=== PATIENT | male | born 1945 | race Hispanic/Latino ===

== ENCOUNTER 2016-10-09 23:42 | Inpatient (IN) | payer MEDICARE ==
[2016-10-10] MEDS ORDERED: Sodium Chloride 0.9% 1,000 ML IV STA (00:02)
--- NOTE | 2016-10-10 00:05 | ED PDOC ---
HPI: Trauma/Fall - HPI Time Seen by Provider: 10/09/16 23:52 Chief Complaint (Nursing): Hip Pain Chief Complaint (Provider): Hip pain s/p Fall History Per: Patient Additional Complaint(s): 71 yo male, multiple co-morbidities, presents to ED after a slip and fall down ~ 10 steps. Pt was feeling well, was walking up the stairs and slipped and fell , causing him to tumble down the stairs. Pt complaining of severer right hip pain, Right LE is shortened and externally rotated. Pt with noticeable contusion to occipital scalp. Also complaining of neck pain. No dizziness, nausea, vomiting, chest pain or SOB. Past Medical History Reviewed: Nursing Documentation, Vital Signs Vital Signs: Last Vital Signs Temp 97.3 F L 10/09/16 23:56 Pulse 88 10/09/16 23:56 Resp 16 10/09/16 23:56 BP 177/99 H 10/09/16 23:56 Pulse Ox 99 10/09/16 23:56 - Medical History PMH: CAD, Diabetes, HTN, Hypercholesterolemia Denies: HIV - Surgical History Surgical History: CABG - Family History Family History: States: Unknown Family Hx - Living Arrangements Living Arrangements: With Family - Social History Current smoker - smoking cessation education provided: No Alcohol: None Drugs: Denies - Home Medications Home Medications: Ambulatory Orders Medication Instructions Recorded Aspirin 325 mg PO DAILY #0 ect 07/19/14 Bimatoprost [Lumigan 5 ml] 1 drop EACHEYE HS #0 daysi 07/19/14 Brimonidine Tartrate [Alphagan 5 1 drop EACHEYE HS 10/10/16 ml] Carvedilol [Coreg] 12.5 mg PO BID 10/10/16 Furosemide [Lasix] 40 mg PO DAILY 10/10/16 Gabapentin [Neurontin] 300 mg PO DAILY 10/10/16 Glyburide/Metformin HCl 1.5 tab PO DAILY 10/10/16 [Glyburide-Metformin 5-500 mg] Glyburide/Metformin HCl 2 tab PO DAILY 10/10/16 [Glyburide-Metformin 5-500 mg] Insulin Degludec [Tresiba 16 units SQ HS 10/10/16 Flextouch U-100] Ramipril [Altace] 5 mg PO DAILY 10/10/16 Spironolactone [Aldactone] 50 mg PO DAILY 10/10/16 Zolpidem [Ambien] 5 mg PO HS PRN 10/10/16 - Allergies Allergies/Adverse Reactions: Allergies Allergy/AdvReac Type Severity Reaction Status Date / Time No Known Allergies Allergy Verified 07/17/14 07:00 Review of Systems ROS Statement: Except As Marked, All Systems Reviewed And Found Negative Musculoskeletal: Positive for: Back Pain, Leg Pain Neurological: Positive for: Headache Physical Exam - Reviewed Nursing Documentation Reviewed: Yes Vital Signs Reviewed: Yes - Physical Exam Appears: Positive for: Well, Non-toxic, No Acute Distress Head Exam: Positive for: NORMAL INSPECTION, NORMOCEPHALIC. Negative for: ATRAUMATIC (occipital scalp hematoma) Skin: Positive for: Normal Color, Warm, DRY Eye Exam: Positive for: EOMI, Normal appearance, PERRL ENT: Positive for: Normal ENT Inspection Neck: Positive for: Supple, Pain On Movement Of Neck Cardiovascular/Chest: Positive for: Regular Rate, Rhythm Respiratory: Positive for: CNT, Normal Breath Sounds Gastrointestinal/Abdominal: Positive for: Normal Exam, Bowel Sounds, Soft Back: Positive for: Normal Inspection, Vertebral Tenderness (LS Spine) Extremity: Positive for: Other (Right Leg is shortened and externally rotated. Dp pulses 2+) Neurologic/Psych: Positive for: Alert, Oriented - Laboratory Results Result Diagrams: 10/10/16 00:07 10/10/16 00:25 - ECG O2 Sat by Pulse Oximetry: 99 Medical Decision Making Medical Decision Making: IV access established and treatment initiated with 4 mg Morphine Diagnostics ordered CXR and LS Spine XR: NAD, as read by PA-C XR of hip revealed (+) comminuted fracture. CT scan of head and neck were negative CT of Hip.Pelvis: Bones/joints: Comminuted, displaced fracture proximal femur. Fracture involves proximal diaphysis with extension to lesser trochanter. No dislocation. Degenerative changes of lower lumbar spine. Soft tissues: Soft tissue swelling/hematoma about fracture. Bilateral inguinal hernias containing fat extending into scrotum. Vasculature: Atherosclerotic disease of visualized arteries. IMPRESSION: 1. Proximal femoral fracture. 2. Incidental/non-acute findings are described above. Pt and family made aware of results. Pt medicated with additional 4 mg Morphine for complaints of pain Pt's PMD is Dr. Acharya, FP resident contacted and presented to see and evaluate Pt at bedside. Arrangements made for admission Dr. Osorio, ortho on-call, Contacted and case discussed. Pt to likely go to OR on Monday, pending clearance. Disposition - Clinical Impression Clinical Impression: Hip fracture - Patient ED Disposition Is Patient to be Admitted: Yes - Disposition Disposition Time: 06:09 Condition: STABLE - POA Present On Arrival: Falls Or Trauma, Poor Glycemic Control
[2016-10-10 00:27] LABS: BASO # 0.1 K/uL (0.0-0.2); BASO % 0.9 % (0.0-2.0); EOS # 0.2 K/uL (0.0-0.7); EOS % 1.4 % (0.0-4.0); HEMATOCRIT 30.9 % (35.0-51.0); LYMPH # 2.6 K/uL (1.0-4.3); LYMPH % 16.4 % (20.0-40.0); MEAN CELL VOLUME 87.7 fl (80.0-94.0); MEAN CORPUSCULAR HEMOGLOBIN 29.3 pg (27.0-31.0); MEAN CORPUSCULAR HGB CONC 33.4 g/dL (33.0-37.0); MEAN PLATELET VOLUME 7.9 fl (7.2-11.7); MONO # 1.1 K/uL (0.0-0.8); MONO % 7.2 % (0.0-10.0); NEUT # 11.8 K/uL (1.8-7.0); NEUT % 74.1 % (50.0-75.0); RED CELL DISTRIBUTION WIDTH 13.2 % (11.5-14.5); WHITE BLOOD COUNT 15.9 K/uL (4.8-10.8)
[2016-10-10 00:32] LABS: BILIRUBIN,TOTAL 0.2 mg/dl (0.2-1.3); CALCIUM 9.6 mg/dL (8.4-10.2); POTASSIUM 4.8 MMOL/L (3.6-5.0)
[2016-10-10 00:44] LABS: TROPONIN I 0.019 ng/mL (0.00-0.120)
--- NOTE | 2016-10-10 00:47 | CT ---
EXAM: CT Head Without Intravenous Contrast CLINICAL HISTORY: 71 years old, male; Injury or trauma; Fall; Initial encounter; Blunt trauma (contusions or hematomas); Additional info: Fall, head injury TECHNIQUE: Axial computed tomography images of the head/brain without intravenous contrast. This CT exam was performed using one or more of the following dose reduction techniques: automated exposure control, adjustment of the mA and/or kV according to patient size, and/or use of iterative reconstruction technique. Coronal and sagittal reformatted images were created and reviewed. COMPARISON: No relevant prior studies available. FINDINGS: Brain: Tlvy-br-yldsukyd atrophy. No intracranial hemorrhage. No mass. Minimal decreased attenuation within periventricular white matter. No edema. Ventricles: No hydrocephalus. Bones/joints: No acute fracture. Soft tissues: LEFT parietal soft tissue swelling. Sinuses: No acute sinusitis. Mastoid air cells: No mastoid effusion. Orbits: Unremarkable as visualized. IMPRESSION: 1. No intracranial hemorrhage. 2. Nonspecific white matter changes. 3. Incidental/non-acute findings are described above.
--- NOTE | 2016-10-10 00:50 | CT ---
EXAM: CT Cervical Spine Without Intravenous Contrast CLINICAL HISTORY: 71 years old, male; Injury or trauma; Fall; Initial encounter; Blunt trauma; Additional info: Pain S/P fall TECHNIQUE: Axial computed tomography images of the cervical spine without intravenous contrast. This CT exam was performed using one or more of the following dose reduction techniques: automated exposure control, adjustment of the mA and/or kV according to patient size, and/or use of iterative reconstruction technique. Coronal and sagittal reformatted images were created and reviewed. COMPARISON: No relevant prior studies available. FINDINGS: Vertebrae: No acute fracture. Straightening of cervical spine. Degenerative anterolisthesis of mid cervical spine. Facet osteoarthrosis within cervical spine. Discs/spinal canal/neural foramina: Early to mild degenerative disc disease within upper to mid cervical spine. Moderate to severe degenerative disc disease within lower cervical spine. Disc herniations within mid to lower cervical spine, suboptimally evaluated. Mild indentation thecal sac/cord mid cervical spine. Moderate to severe indentation thecal sac/cord lower cervical spine. Multifocal neuroforaminal narrowing. Soft tissues: Unremarkable. Vasculature: Atherosclerotic disease of visualized arteries. Lung apices: Unremarkable as visualized. IMPRESSION: 1. No fracture. 2. Incidental/non-acute findings are described above.
--- NOTE | 2016-10-10 00:55 | CT ---
EXAM: CT Right Lower Extremity Without Intravenous Contrast, Hip CLINICAL HISTORY: 71 years old, male; Injury or trauma; Fall; Initial encounter; Blunt trauma; Hip; Right; Additional info: Fxr TECHNIQUE: Axial computed tomography images of the right hip without intravenous contrast. This CT exam was performed using one or more of the following dose reduction techniques: automated exposure control, adjustment of the mA and/or kV according to patient size, and/or use of iterative reconstruction technique. Coronal and sagittal reformatted images were created and reviewed. COMPARISON: No relevant prior studies available. FINDINGS: Bones/joints: Comminuted, displaced fracture proximal femur. Fracture involves proximal diaphysis with extension to lesser trochanter. No dislocation. Degenerative changes of lower lumbar spine. Soft tissues: Soft tissue swelling/hematoma about fracture. Bilateral inguinal hernias containing fat extending into scrotum. Vasculature: Atherosclerotic disease of visualized arteries. IMPRESSION: 1. Proximal femoral fracture. 2. Incidental/non-acute findings are described above.
[2016-10-10 01:51] LABS: PARTIAL THROMBOPLASTIN TIME 25.1 Seconds (25.6-37.1)
--- NOTE | 2016-10-10 02:32 | CP.PCM.HP ---
<JoserobbieFareed cuellar - Last Filed: 10/10/16 06:07> History of Present Illness - History of Present Illness History of Present Illness: 71 yo M w PMHx of HTN, CABG x5 '15, HLD, and DM2 is admitted for fractured R hip. His pain is located to his right hip, was 10/10 at rest until receiving morphine 4mg x2, which improved his baseline pain. Pt tripped while walking up a staircase at his home and fell backwards down a flight of stairs. 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 At bedside in ER, his states that he took all of his medications for 10/09. Otherwise, he also denies fevers/chills, nausea, vomiting , diarrhea, chest pain, palpitations, SOB, dyspnea, cough, or abdominal pain. PMD: Dr Oh Regional Safety Manager: Dr Gaona Ortho: Dr Sullivan Urology: Dr Pearson PMHx: HTN, CABG x5, DM2, HLD, CAD, Prostate Cancer, unsuccessful Left Eye Corneal Transplant PSHx: CABG, Left Eye Corneal Transplant NKDA Home Meds: ASA 325mg, Bimatoprost 5mL HS, Brimonidine 5mL HS, Coreg 12.5mg PO BID, Lasix 40mg PO Daily, Gabapentin 300mg PO Daily, Glucovance 2 tabs Daily, Insulin Degludec 16u SC HS, Ramipril 2.5mg Daily, Spironolactone 50mg Daily, Ambien 5mg HS SHx: Denies etoh or illicit drugs, but does smoke a few cigarettes per day ED Course: -CBC -CMP -PT/INR/PTT -ABO/RH Type -Right Hip XR -CXR -L Spine XR -EKG -Morphine 4mg IVP ONCE x2 -NS 1L @ 125 mL/hr Present on Admission - Present on Admission Any Indicators Present on Admission: No History of DVT/PE: No History of Uncontrolled Diabetes: No Urinary Catheter: No Decubitus Ulcer Present: No Review of Systems - Review of Systems Review of Systems: see HPI Past Patient History - Past Social History Smoking Status: Light Smoker < 10 Cigarettes Daily - CARDIAC Hx Hypercholesterolemia: Yes Hx Hypertension: Yes - HEENT Other/Comment: had left corneal transplant in - RENAL Hx Chronic Kidney Disease: No - ENDOCRINE/METABOLIC Hx Endocrine Disorders: Yes (DM II) Hx Diabetes Mellitus Type 2: Yes - HEMATOLOGICAL/ONCOLOGICAL Hx Human Immunodeficiency Virus (HIV): No - MUSCULOSKELETAL/RHEUMATOLOGICAL Hx Falls: No - GENITOURINARY/GYNECOLOGICAL Hx Prostate Cancer: Yes - PSYCHIATRIC Hx Substance Use: No - SURGICAL HISTORY Hx Coronary Artery Bypass Graft: Yes - ANESTHESIA Hx Anesthesia Reactions: No Meds Allergies/Adverse Reactions: Allergies Allergy/AdvReac Type Severity Reaction Status Date / Time No Known Allergies Allergy Verified 07/17/14 07:00 Physical Exam - Constitutional Appears: Non-toxic, Other (Uncomfortable, In Pain) - Head Exam Head Exam: NORMOCEPHALIC Additional comments: scalp abrasion - Eye Exam Eye Exam: EOMI Additional comments: Left eye exhibits mild white haziness (s/p corneal transplant) - ENT Exam ENT Exam: Mucous Membranes Moist - Neck Exam Neck exam: Positive for: Normal Inspection - Respiratory Exam Respiratory Exam: Clear to Auscultation Bilateral, NORMAL BREATHING PATTERN. absent: Wheezes, Respiratory Distress - Cardiovascular Exam Cardiovascular Exam: REGULAR RHYTHM - GI/Abdominal Exam GI & Abdominal Exam: Normal Bowel Sounds, Soft. absent: Tenderness - Extremities Exam Extremities exam: Positive for: pedal pulses present (2+ bilaterally). Negative for: pedal edema, tenderness Additional comments: sensation intact b/l lower extremities; Right leg is externally rotated and shortened - Neurological Exam Neurological exam: Alert, CN II-XII Intact, Oriented x3 - Psychiatric Exam Psychiatric exam: Normal Affect, Normal Mood - Skin Skin Exam: Dry, Intact, Normal Color, Warm Results - Vital Signs Recent Vital Signs: Last Vital Signs Temp 97.5 F L 10/10/16 01:53 Pulse 95 H 10/10/16 01:53 Resp 15 10/10/16 01:53 BP 165/80 H 10/10/16 01:53 Pulse Ox 97 10/10/16 01:53 - Labs Result Diagrams: 10/10/16 00:07 10/10/16 00:25 Assessment & Plan - Assessment and Plan (Free Text) Plan: 71 yo M w PMHx of HTN, CABG x5 '15, HLD, and DM2 is admitted for fractured R hip 1) Fracture of Right Hip -s/p traumatic fall down full staircase -CT Hip: Comminuted, displaced fracture proximal femur. Fracture involves proximal diaphysis with extension to lesser trochanter. No dislocation. Soft tissue swelling/hematoma about fracture. Atherosclerotic disease of visualized arteries. -CT Head: No intracranial hemorrhage. Nonspecific white matter changes. Left parietal soft tissue swelling. -CT C Spine: No fracture. Early to mild degenerative disc disease within upper to mid cervical spine. Moderate to severe degenerative disc disease within lower cervical spine. Disc herniations within mid to lower cervical spine. -Ortho Consult, Dr Sullivan onboard: Will take to OR on Monday -Consult Regional Safety Manager Dr Gaona for completeness sake of complete clearance -NS 1L @ 125mL/hr -Dilauded 1mg IVP Q6H -f/u Cardio Consult -f/u official readings of radiographs -f/u Pain Control; Consider pain management consult 2) DM2 -Pt states h/o controlled values; Will confirm this -Glucovance HELD until proper dosage can be obtained -Insulin Degludec 16u SC HS needs to be brought to hospital from home -Lispro Medium Sliding Scale ACHS -f/u FS SCHS 3) HTN w h/o CAD, CABG x5 -ASA 325mg PO Daily -Ramipril 5mg PO Daily -Spironolactone 50mg PO Daily -Coreg 12.5mg PO BID -Lasix 40mg PO Daily -f/u elevated BPs in respect to toleration of pain 4) Left Corneal Transplant -Brimonidine 0.2% 1 drop OU HS -Latanoprost 0.005% 1 drop OU HS 5) DVT Prophylaxis -SCDs <Jorge Oh - Last Filed: 10/13/16 06:45> Results - Vital Signs Recent Vital Signs: Last Vital Signs Temp 97.3 F L 10/13/16 00:32 Pulse 97 H 10/13/16 00:32 Resp 20 10/13/16 00:32 BP 110/68 10/13/16 00:32 Pulse Ox 98 10/13/16 00:32 - Labs Result Diagrams: 10/12/16 12:00 10/12/16 05:50 Labs: Laboratory Results - last 24 hr 10/12/16 10/12/16 10/12/16 05:50 05:50 10:54 WBC 12.9 H RBC 2.49 L Hgb 7.2 L D Hct 21.7 L MCV 87.4 MCH 29.0 MCHC 33.2 RDW 13.6 Plt Count 190 MPV 8.0 Neut % (Auto) 75.9 H Lymph % (Auto) 10.1 L [place] % (Auto) 12.2 H Eos % (Auto) 1.5 Baso % (Auto) 0.3 Neut # 9.8 H Lymph # 1.3 [place] # 1.6 H Eos # 0.2 Baso # 0.0 Sodium 131 L Potassium 5.3 H Chloride 99 Carbon Dioxide 24 Anion Gap 13 BUN 34 H Creatinine 1.6 H Est GFR ( Amer) 52 Est GFR (Non-Af Amer) 43 POC Glucose (mg/dL) 358 H Random Glucose 293 H Calcium 8.1 L Blood Type Antibody Screen Crossmatch BBK History Checked 10/12/16 10/12/16 10/12/16 12:00 12:30 15:38 WBC 12.0 H RBC 2.19 L Hgb 6.5 L* Hct 19.3 L MCV 87.8 MCH 29.5 MCHC 33.6 RDW 13.4 Plt Count 177 MPV Neut % (Auto) Lymph % (Auto) [place] % (Auto) Eos % (Auto) Baso % (Auto) Neut # Lymph # [place] # Eos # Baso # Sodium Potassium Chloride Carbon Dioxide Anion Gap BUN Creatinine Est GFR ( Amer) Est GFR (Non-Af Amer) POC Glucose (mg/dL) 387 H Random Glucose Calcium Blood Type Cancelled Antibody Screen Cancelled Crossmatch See Detail BBK History Checked Cancelled 10/12/16 10/13/16 21:43 06:24 WBC RBC Hgb Hct MCV MCH MCHC RDW Plt Count MPV Neut % (Auto) Lymph % (Auto) [place] % (Auto) Eos % (Auto) Baso % (Auto) Neut # Lymph # [place] # Eos # Baso # Sodium Potassium Chloride Carbon Dioxide Anion Gap BUN Creatinine Est GFR ( Amer) Est GFR (Non-Af Amer) POC Glucose (mg/dL) 347 H 387 H Random Glucose Calcium Blood Type Antibody Screen Crossmatch BBK History Checked Assessment & Plan (1) Prostate cancer Status: Chronic Priority: Low Attending/Attestation - Attestation I have personally seen and examined this patient.: Yes I have fully participated in the care of the patient.: Yes I have reviewed all pertinent clinical information: Yes
[2016-10-10] MEDS: Insulin Lispro (humaLOG) 100 Units/ml Inj SC SCH ×4 (06:58→22:26)
--- NOTE | 2016-10-10 08:38 | CP.PCM.CON ---
History of Present Illness - History of Present Illness History of Present Illness: Full Note Dictated Fractured Rt Femoral Neck Stable CAD (S/P CABG May, 2014) CHF (LV, Syst, Chr) DM(II, porly controlled) HTN/Dyslipidemia CKD (III) Chr HyperK+ COPD Exogenous Obesity Will get an Echocardiogram (Last on in Mar 2015 showed EF ~40-45%) Past Patient History - Past Medical History & Family History Past Medical History?: Yes - Past Social History Alcohol: None Drugs: Denies - CARDIAC Hx Hypercholesterolemia: Yes Hx Hypertension: Yes - PULMONARY Hx Respiratory Disorders: No - NEUROLOGICAL Hx Neurological Disorder: No - HEENT Other/Comment: had left corneal transplant in - RENAL Hx Chronic Kidney Disease: No - ENDOCRINE/METABOLIC Hx Endocrine Disorders: Yes (DM II) Hx Diabetes Mellitus Type 2: Yes - HEMATOLOGICAL/ONCOLOGICAL Hx Human Immunodeficiency Virus (HIV): No - INTEGUMENTARY Hx Dermatological Problems: No - MUSCULOSKELETAL/RHEUMATOLOGICAL Hx Falls: No - GENITOURINARY/GYNECOLOGICAL Hx Prostate Cancer: Yes - PSYCHIATRIC Hx Substance Use: No - SURGICAL HISTORY Hx Coronary Artery Bypass Graft: Yes - ANESTHESIA Hx Anesthesia Reactions: No Meds Allergies/Adverse Reactions: Allergies Allergy/AdvReac Type Severity Reaction Status Date / Time No Known Allergies Allergy Verified 07/17/14 07:00 - Medications Medications: Current Medications Aspirin (Ecotrin) 325 mg PO DAILY [facility] Brimonidine Tartrate (Alphagan 0.2% Opht) 1 drop OU HS [facility] Carvedilol (Coreg) 12.5 mg PO BID [facility] Furosemide (Lasix) 40 mg PO DAILY [facility] Gabapentin (Neurontin) 300 mg PO DAILY [facility] Heparin Sodium (Porcine) (Heparin) 5,000 units SC Q8 [facility] PRN Reason: Protocol Home Med (Insulin Degludec [Tresiba Flextouch U-100]) 16 units SQ HS [facility] Hydromorphone HCl (Dilaudid) 1 mg IVP Q6H PRN PRN Reason: Pain, severe (8-10) Last Admin: 10/10/16 03:28 Dose: 1 mg Insulin Human Lispro (Humalog) 0 units SC ACHS [facility] PRN Reason: Protocol Last Admin: 10/10/16 06:58 Dose: 6 units Latanoprost (Xalatan Opht) 1 drop OU HS [facility] Ramipril (Altace) 5 mg PO DAILY [facility] Spironolactone (Aldactone) 50 mg PO DAILY [facility] Zolpidem Tartrate (Ambien) 5 mg PO HS PRN PRN Reason: Insomnia Results - Vital Signs Recent Vital Signs: Last Vital Signs Temp 98 F 10/10/16 03:07 Pulse 102 H 10/10/16 03:07 Resp 20 10/10/16 03:07 BP 191/85 H 10/10/16 03:07 Pulse Ox 99 10/10/16 06:09 - Labs Result Diagrams: 10/10/16 00:07 10/10/16 00:25 Labs: Laboratory Results - last 24 hr 10/10/16 10/10/16 10/10/16 01:45 02:03 03:46 POC Glucose (mg/dL) 287 H 315 H Blood Type O POSITIVE BBK History Checked Patient has bt 10/10/16 05:37 POC Glucose (mg/dL) 335 H Blood Type BBK History Checked
[2016-10-10] MEDS ORDERED: GLYBURIDE PO SCH ×2 (09:00)
[2016-10-10] MEDS ORDERED: Aspirin 325 mg EC Tablets PO SCH (09:00)
[2016-10-10] MEDS ORDERED: METFORMIN HCL PO SCH ×2 (09:00)
--- NOTE | 2016-10-10 09:05 | CP.PCM.CON ---
History of Present Illness - History of Present Illness History of Present Illness: Orthopaedic Consult Note for Dr. Osorio 71 year old male patient with PMHx including DM, HTN, CABG x5 '15, HLD, was seen at bedside for fractured R hip. He states that last night he tripped while walking up a staircase at his home and fell backwards. He denies fevers/chills, nausea, vomiting, diarrhea, chest pain, palpitations, SOB, dyspnea, cough, or abdominal pain. He admits he is still having some pain to his right hip and cannot move it. Past Patient History - Past Medical History & Family History Past Medical History?: Yes - Past Social History Alcohol: None Drugs: Denies - CARDIAC Hx Hypercholesterolemia: Yes Hx Hypertension: Yes - PULMONARY Hx Respiratory Disorders: No - NEUROLOGICAL Hx Neurological Disorder: No - HEENT Other/Comment: had left corneal transplant in - RENAL Hx Chronic Kidney Disease: No - ENDOCRINE/METABOLIC Hx Endocrine Disorders: Yes (DM II) Hx Diabetes Mellitus Type 2: Yes - HEMATOLOGICAL/ONCOLOGICAL Hx Human Immunodeficiency Virus (HIV): No - INTEGUMENTARY Hx Dermatological Problems: No - MUSCULOSKELETAL/RHEUMATOLOGICAL Hx Falls: No - GENITOURINARY/GYNECOLOGICAL Hx Prostate Cancer: Yes - PSYCHIATRIC Hx Substance Use: No - SURGICAL HISTORY Hx Coronary Artery Bypass Graft: Yes - ANESTHESIA Hx Anesthesia Reactions: No Meds Allergies/Adverse Reactions: Allergies Allergy/AdvReac Type Severity Reaction Status Date / Time No Known Allergies Allergy Verified 07/17/14 07:00 - Medications Medications: Current Medications Aspirin (Ecotrin) 325 mg PO DAILY [facility] Last Admin: 10/10/16 08:29 Dose: 325 mg Brimonidine Tartrate (Alphagan 0.2% Opht) 1 drop OU HS [facility] Carvedilol (Coreg) 12.5 mg PO BID [facility] Last Admin: 10/10/16 08:27 Dose: 12.5 mg Furosemide (Lasix) 40 mg PO DAILY [facility] Last Admin: 10/10/16 08:29 Dose: 40 mg Gabapentin (Neurontin) 300 mg PO DAILY [facility] Last Admin: 10/10/16 08:28 Dose: 300 mg Heparin Sodium (Porcine) (Heparin) 5,000 units SC Q8 [facility] PRN Reason: Protocol Home Med (Insulin Degludec [Tresiba Flextouch U-100]) 16 units SQ HS [facility] Hydromorphone HCl (Dilaudid) 1 mg IVP Q6H PRN PRN Reason: Pain, severe (8-10) Last Admin: 10/10/16 08:40 Dose: 1 mg Insulin Human Lispro (Humalog) 0 units SC ACHS [facility] PRN Reason: Protocol Last Admin: 10/10/16 06:58 Dose: 6 units Latanoprost (Xalatan Opht) 1 drop OU HS [facility] Ramipril (Altace) 5 mg PO DAILY [facility] Last Admin: 10/10/16 08:29 Dose: 5 mg Spironolactone (Aldactone) 50 mg PO DAILY [facility] Last Admin: 10/10/16 08:28 Dose: 50 mg Zolpidem Tartrate (Ambien) 5 mg PO HS PRN PRN Reason: Insomnia Physical Exam - Constitutional Appears: Well, Non-toxic, No Acute Distress - Extremities Exam Additional comments: pedal pulses present 2/4 b/l sensation intact b/l lower extremities Right leg is externally rotated - Neurological Exam Neurological exam: Alert, Oriented x3 - Psychiatric Exam Psychiatric exam: Normal Affect, Normal Mood Results - Vital Signs Recent Vital Signs: Last Vital Signs Temp 97.8 F 10/10/16 08:43 Pulse 105 H 10/10/16 08:43 Resp 20 10/10/16 08:43 BP 179/94 H 10/10/16 08:43 Pulse Ox 96 10/10/16 08:43 - Labs Result Diagrams: 10/10/16 00:07 10/10/16 00:25 Labs: Laboratory Results - last 24 hr 10/10/16 10/10/16 10/10/16 01:45 02:03 03:46 POC Glucose (mg/dL) 287 H 315 H Blood Type O POSITIVE BBK History Checked Patient has bt 10/10/16 05:37 POC Glucose (mg/dL) 335 H Blood Type BBK History Checked Assessment & Plan - Assessment and Plan (Free Text) Assessment: 71 year old male with right femoral fracture Plan: patient examined and evaluated discussed in detail with attending, Dr. Osorio patient to OR tomorrow am for right femur ORIF with IM nail medical and cardic clearance to be obtained NPO after midnight
[2016-10-10] MEDS ORDERED: Sod Polystyrene Sulf 15 gm/60 ml Oral Susp PO ONE (09:58)
--- NOTE | 2016-10-10 11:29 | RAD ---
HISTORY: med screening COMPARISON: Chest x-ray performed 07/17/14 TECHNIQUE: Chest, one view. FINDINGS: Examination limited by habitus. LUNGS: No focal consolidation. Please note that chest x-ray has limited sensitivity for the detection of pulmonary masses. PLEURA: No significant pleural effusion identified. No definite pneumothorax . CARDIOVASCULAR: Median sternotomy wires with evidence of CABG. Cardiomegaly. Atherosclerotic calcification of the aortic knob. OSSEOUS STRUCTURES: Degenerative changes of the spine and shoulders. Evidence of right shoulder calcific tendinitis. VISUALIZED UPPER ABDOMEN: Mild elevation of the right hemidiaphragm. OTHER FINDINGS: None. IMPRESSION: No focal consolidation, significant pleural effusion, or definite pneumothorax identified. Cardiomegaly. Median sternotomy wires with evidence of CABG. Atherosclerotic calcifications of the aortic knob.
--- NOTE | 2016-10-10 11:43 | CON ---
DATE: 10/10/2016 He is hospitalized under Dr. Oh's care in room [address] [place] [address]. This 71-year-old man is known to me for over 4-5 years, a longstanding hypertensive and diabetic with coronary artery disease. He required coronary bypass graft surgery at the end of 05/2014 when sever e triple vessel coronary artery disease including left main disease was detected. He is a smoker who has a long history of diabetes, hypertension, dyslipidemia and chronic exogenous obesity. He also h as severe COPD and has had congestive cardiac failure requiring use of diuretics. Spironolactone had induced significant hyperkalemia, so the patient was taken off of spironolactone and ramipril and destiny medina was started on Kayexalate to manage his hyperkalemia. The patient was now hospitalized after a fall while climbing a flight of stairs, during which he has fractured his right femoral neck. PHYSICAL EXAMINATION: GENERAL: The patient appears comfortable, having received narcotics for analgesia. VITAL SIGNS: Has a heart rate of 80 beats per minute, regular, and a blood pressure of 174/80 mmHg. His jugular venous pressure was not elevated. EXTREMITIES: There was no edema over his lower extremities. The pedal pulses were extremely feeble. NECK: There were no carotid bruits. CHEST: The scar of sternotomy was evident. VASCULAR: His extremities were warm. His nailbeds were pink. No central or peripheral cyanosis was evident. His electrocardiogram showed sinus rhythm with nonspecific ST-T changes. LABORATORY DATA: Showed a hemoglobin and hematocrit of 10.3 grams and 30.9% respectively. His WBC c ount was 15,900, of which 74% were neutrophils. His platelet count was 263,000. His BUN and creatin ine were 44 and 1.5 mg % with a GFR of 46 mL per minute. His potassium was 4.8. His blood sugar thi s morning was 335 mg %. Liver profile was essentially normal. IMPRESSION: At this time is fractured right femoral neck in a patient with stable coronary artery di sease, congestive cardiac failure, which is left ventricular systolic and chronic with status post co ronary bypass graft surgery, chronic obstructive pulmonary disease, severe exogenous obesity, diabete s mellitus, which is type 2 and uncontrolled, with hypertension and dyslipidemia. The patient has cortez d hyperkalemia and is now taking Kayexalate on a regular basis to maintain a regular potassium level. The patient will undergo an echocardiogram to assess his left ventricular systolic function and if satisfactory, will then proceed with the planned surgery. Rush Gaona MD cc: 23 TT: 10/10/2016 11:42:35 Confirmation # [id number] Dictation # [id number]
--- NOTE | 2016-10-10 11:58 | RAD ---
PROCEDURE: HISTORY: fxr COMPARISON: Not available TECHNIQUE: AP pelvis and two views right hip. FINDINGS: There is an oblique comminuted intertrochanteric fracture of the right hip. There is no dislocation. There is displacement of the fracture fragments. There is no significant angulation identified. IMPRESSION: Comminuted, displaced, oblique intertrochanteric fracture of the right hip.
--- NOTE | 2016-10-10 13:46 | CP.PCM.PN ---
<Sabina Reddy - Last Filed: 10/10/16 15:52> Subjective - Date & Time of Evaluation Date of Evaluation: 10/10/16 Time of Evaluation: 07:15 - Subjective Subjective: Patient seen and examined at bedside, laying in bed, no acute events overnight. Denies SOB, headache, dizziness or chest pain. Reports pain of right lower extremity is 10/10, controlled with medication. Patient was seen by orthopedic team and cardiology, he is aware he will be NPO after midnight tonight for surgery tomorrow pending results of his echocardiogram and cardiology clearance. at bedside. Patient reports normal urine output, has no questions or concerns at this time. Objective - Vital Signs/Intake and Output Vital Signs (last 24 hours): Temp Pulse Resp BP Pulse Ox 97.8 F 105 H 20 179/74 H 96 10/10/16 08:43 10/10/16 12:44 10/10/16 08:43 10/10/16 12:44 10/10/16 08:43 - Medications Medications: Current Medications Amlodipine Besylate (Norvasc) 10 mg PO DAILY [facility] Last Admin: 10/10/16 12:44 Dose: 10 mg Aspirin (Ecotrin) 325 mg PO DAILY [facility] Last Admin: 10/10/16 08:29 Dose: 325 mg Brimonidine Tartrate (Alphagan 0.2% Opht) 1 drop OU HS [facility] Carvedilol (Coreg) 12.5 mg PO BID [facility] Last Admin: 10/10/16 08:27 Dose: 12.5 mg Furosemide (Lasix) 40 mg PO DAILY [facility] Last Admin: 10/10/16 08:29 Dose: 40 mg Gabapentin (Neurontin) 300 mg PO DAILY [facility] Last Admin: 10/10/16 08:28 Dose: 300 mg Heparin Sodium (Porcine) (Heparin) 5,000 units SC Q8 [facility] PRN Reason: Protocol Last Admin: 10/10/16 12:45 Dose: 5,000 units Home Med (Insulin Degludec [Tresiba Flextouch U-100]) 16 units SQ HS [facility] Hydromorphone HCl (Dilaudid) 1 mg IVP Q4 PRN PRN Reason: Pain, severe (8-10) Last Admin: 10/10/16 13:27 Dose: 1 mg Insulin Human Lispro (Humalog) 0 units SC ACHS [facility] PRN Reason: Protocol Last Admin: 10/10/16 12:46 Dose: 6 units Latanoprost (Xalatan Opht) 1 drop OU HS EDIS Ramipril (Altace) 5 mg PO DAILY [facility] Last Admin: 10/10/16 12:44 Dose: 5 mg Zolpidem Tartrate (Ambien) 5 mg PO HS PRN PRN Reason: Insomnia - Labs Labs: PT 9.9 Seconds (9.8-13.1) 10/10/16 00:25 INR 0.9 (0.9-1.2) 10/10/16 00:25 APTT 25.1 Seconds (25.6-37.1) L 10/10/16 00:25 - Constitutional Appears: Non-toxic, No Acute Distress - Head Exam Additional comments: 2cm nontender subcutaneous swelling of left parietal area - Eye Exam Eye Exam: EOMI, PERRL - ENT Exam ENT Exam: Mucous Membranes Moist - Neck Exam Neck Exam: Full ROM. absent: Lymphadenopathy - Respiratory Exam Respiratory Exam: NORMAL BREATHING PATTERN - Cardiovascular Exam Cardiovascular Exam: REGULAR RHYTHM, +S1, +S2 - GI/Abdominal Exam GI & Abdominal Exam: Soft (obese), Normal Bowel Sounds. absent: Tenderness - Extremities Exam Extremities Exam: Full ROM (of bilateral upper extremities and left lower extremity; right lower extremity externally rotated-normal pedal pulses, capillary refill and pt can wiggle toes) - Neurological Exam Neurological Exam: Alert, Awake - Psychiatric Exam Psychiatric exam: Normal Affect, Normal Mood - Skin Skin Exam: Dry, Intact, Warm Assessment and Plan - Assessment and Plan (Free Text) Assessment: 71 yr old M admitted for severe right hip pain and decreased ROM s/p fall down 10 steps. Patient found to have intertrochanteric fracture of the right hip. 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 Patient is being medically optimized for surgery on monday pending cardiology clearance, NPO after midnight tonight. 1. Fracture of Right Hip -s/p traumatic fall down full staircase -CT Hip: Comminuted, displaced fracture proximal femur. Fracture involves proximal diaphysis with extension to lesser trochanter. No dislocation. Soft tissue swelling/hematoma about fracture. Atherosclerotic disease of visualized arteries. -CT Head: No intracranial hemorrhage. Nonspecific white matter changes. Left parietal soft tissue swelling. -CT C Spine: No fracture. Early to mild degenerative disc disease within upper to mid cervical spine. Moderate to severe degenerative disc disease within lower cervical spine. Disc herniations within mid to lower cervical spine. -Ortho Consult, Dr Sullivan onboard: Will take to OR on Monday pending cardiology and medical optimization -Cardiology consult appreciated Dr. Gaona, will follow recommendations -Pain management: Dilauded 1mg IVP Q4H -NPO after midnight tonight 2. DM2 -uncontrolled -Insulin Lispro SC ACHS -Home meds held for now (Glucovance and Insulin Degludec 16u SC HS, will confirm doses with pharmacy) -will consider resumimg home meds after surgery tomorrow -f/u FS SCHS 3) HTN w h/o CAD, CABG x5 -ASA 325mg PO Daily-held for surgery tomorrow -Ramipril 5mg PO Daily -Spironolactone 50mg PO Daily -Coreg 12.5mg PO BID -Lasix 40mg PO Daily -f/u elevated BPs in respect to toleration of pain 4) Left Corneal Transplant -Brimonidine 0.2% 1 drop OU HS -Latanoprost 0.005% 1 drop OU HS 5) DVT Prophylaxis -SCDs only for now, heparin 5,000 units SC Q8 held for surgery tomorrow <Dipak Samuel - Last Filed: 10/11/16 07:05> Objective - Vital Signs/Intake and Output Vital Signs (last 24 hours): Temp Pulse Resp BP Pulse Ox 97.9 F 83 20 134/78 96 10/11/16 00:29 10/11/16 00:29 10/11/16 00:29 10/11/16 00:29 10/11/16 00:29 - Medications Medications: Current Medications Amlodipine Besylate (Norvasc) 10 mg PO DAILY [facility] Last Admin: 10/10/16 12:44 Dose: 10 mg Brimonidine Tartrate (Alphagan 0.2% Opht) 1 drop OU HS [facility] Last Admin: 10/10/16 22:28 Dose: 1 drop Carvedilol (Coreg) 12.5 mg PO BID [facility] Last Admin: 10/10/16 17:00 Dose: 12.5 mg Dextrose (Dextrose 50% Inj) 0 ml IV STAT PRN; Protocol PRN Reason: Hyglycemia Protocol Dextrose (Glutose 15) 0 gm PO ONCE PRN; Protocol PRN Reason: Hypoglycemia Protocol Furosemide (Lasix) 40 mg PO DAILY [facility] Last Admin: 10/10/16 08:29 Dose: 40 mg Gabapentin (Neurontin) 300 mg PO DAILY [facility] Last Admin: 10/10/16 08:28 Dose: 300 mg Glucagon (Glucagen Diagnostic Kit) 0 mg IM STAT PRN; Protocol PRN Reason: Hypoglycemia Protocol Home Med (Insulin Degludec [Tresiba Flextouch U-100]) 16 units SQ HS [facility] Hydromorphone HCl (Dilaudid) 1 mg IVP Q4 PRN PRN Reason: Pain, severe (8-10) Last Admin: 10/11/16 06:49 Dose: 1 mg Sodium Chloride (Sodium Chloride 0.9%) 1,000 mls @ 100 mls/hr IV .Q10H [facility] Stop: 10/11/16 20:27 Last Admin: 10/11/16 00:16 Dose: 100 mls/hr Insulin Human Lispro (Humalog) 0 units SC ACHS [facility] PRN Reason: Protocol Last Admin: 10/10/16 22:26 Dose: Not Given Latanoprost (Xalatan Opht) 1 drop OU HS [facility] Last Admin: 10/10/16 22:25 Dose: 1 drop Ondansetron HCl (Zofran Inj) 4 mg IVP Q6 PRN PRN Reason: Nausea/Vomiting Ramipril (Altace) 5 mg PO DAILY [facility] Last Admin: 10/10/16 12:44 Dose: 5 mg Zolpidem Tartrate (Ambien) 5 mg PO HS PRN PRN Reason: Insomnia - Labs Labs: PT 9.9 Seconds (9.8-13.1) 10/10/16 00:25 INR 0.9 (0.9-1.2) 10/10/16 00:25 APTT 25.1 Seconds (25.6-37.1) L 10/10/16 00:25 Attending/Attestation - Attestation I have personally seen and examined this patient.: Yes I have fully participated in the care of the patient.: Yes I have reviewed all pertinent clinical information, including history, physical exam and plan: Yes
--- NOTE | 2016-10-10 16:00 | RAD ---
PROCEDURE: Radiographs of the Lumbar Spine. HISTORY: back pain s/p fall COMPARISON: None available. FINDINGS: BONES: Alignment appears satisfactory. No listhesis. No acute displaced fracture identified. Multilevel degenerative changes including prominent osteophyte formation. Degenerative changes of the pelvis with joint space narrowing of both hips partially imaged. DISC SPACES: Intervertebral disc space narrowing most prominent at L5-S1 OTHER FINDINGS: Dense atherosclerotic calcifications of the aorta. Ovoid hyperdensity projects over the abdominal aorta at the level of L4, presumably external to the patient. Correlate clinically. IMPRESSION: Multilevel degenerative changes as above.
--- NOTE | 2016-10-10 19:09 | CARD ---
APPROVED REPORT EXAM: Two-dimensional and M-mode echocardiogram with Doppler and color Doppler. Other Information Quality : AverageRhythm : NSR INDICATION Congestive Heart Failure Surgery/Intervention CABD DIMENSIONS IVSd1.09 (0.7-1.1cm)LVDd4.54 (3.9-5.9cm) LVOT Diameter2.18 (1.8-2.4cm)PWd0.78 (0.7-1.1cm) IVSs0.98 (0.8-1.2cm)LVDs4.38 (2.5-4.0cm) FS (%) 3.7 %PWs1.29 (0.8-1.2cm) M-Mode DIMENSIONS Left Atrium (MM)3.98 (2.5-4.0cm)IVSd1.12 (0.7-1.1cm) Aortic Root3.32 (2.2-3.7cm)LVDd5.06 (4.0-5.6cm) Aortic Cusp Exc.1.78 (1.5-2.0cm)PWd1.36 (0.7-1.1cm) IVSs1.54 cmFS (%) 35 % LVDs3.28 (2.0-3.8cm)PWs1.57 cm Mitral Valve E/A ratio0.0 TDI E/Lateral E'0.0E/Medial E'0.0 Pulmonary Valve PV Peak Yylzybfp43.8cm/s LEFT VENTRICLE The left ventricle is normal size. There is normal left ventricular wall thickness. The left ventricular function is normal. The left ventricular ejection fraction is 55-60% There is normal LV segmental wall motion. Transmitral Doppler flow pattern is Grade IV-fixed restrictive diastolic dysfunction. No left ventricle thrombus noted on this study. There is no ventricular septal defect visualized. There is no left ventricular aneurysm. There is no mass noted in the left ventricle. RIGHT VENTRICLE The right ventricle is normal size. There is normal right ventricular wall thickness. The right ventricular systolic function is normal. ATRIA The left atrium size is normal. The right atrium size is normal. The interatrial septum is intact with no evidence for an atrial septal defect. AORTIC VALVE The aortic valve is moderately sclerotic. No aortic regurgitation is present. There is no aortic valvular stenosis. There is no aortic valvular vegetation. MITRAL VALVE The mitral valve is normal in structure and function. There is no evidence of mitral valve prolapse. There is no mitral valve stenosis. There is no mitral valve regurgitation noted. TRICUSPID VALVE The tricuspid valve is normal in structure and function. There is no tricuspid valve regurgitation noted. There is no tricuspid valve prolapse or vegetation. There is no tricuspid valve stenosis. PULMONIC VALVE The pulmonary valve is normal in structure and function. There is no pulmonic valvular regurgitation. There is no pulmonic valvular stenosis. GREAT VESSELS The aortic root is normal in size. The ascending aorta is normal in size. The IVC is normal in size and collapses >50% with inspiration. PERICARDIAL EFFUSION The pericardium appears normal. There is no pleural effusion. <Conclusion> Normal LV systolic function Restrictive Diastolic Fiilling Aortic Valve Sclerosis
--- NOTE | 2016-10-10 19:21 | CARD ---
APPROVED REPORT EKG Measurement Heart [id number] HI [id number] <Conclusion> Normal sinus rhythm Possible Left atrial enlargement ST & T wave abnormality, consider inferolateral ischemia Abnormal ECG
[2016-10-10] MEDS ORDERED: Glucagon Recombinant 1 mg Inj IM PRN (20:13)
[2016-10-10] MEDS ORDERED: Dextrose 50% SYRINGE Inj (50 ml) IV PRN (20:13)
[2016-10-10] MEDS ORDERED: INSULIN DEGLUDEC 16 UNIT SQ SCH (22:00)
[2016-10-10] MEDS ORDERED: BIMATOPROST EACHEYE SCH (22:00)
[2016-10-10] MEDS ORDERED: BRIMONIDINE TARTRATE EACHEYE SCH (22:00)
[2016-10-10] MEDS: Latanoprost 0.005% Opht SOUTION OU SCH (22:25)
[2016-10-10] MEDS: Brimonidine 0.2% 50 DROP/5 ML BOTTLE OU SCH (22:28)
[2016-10-11] MEDS: Sodium Chloride 0.9% 1,000 ML IV SCH ×3 (00:16→20:00)
[2016-10-11] MEDS ORDERED: Propofol 10 mg/ml Inj (20 ML) ONE (07:13)
[2016-10-11] MEDS ORDERED: Rocuronium 10 mg/ml (5 ml) ONE (07:15)
[2016-10-11] MEDS ORDERED: Midazolam 2 MG/2 ML VIAL ONE (07:15)
[2016-10-11] MEDS ORDERED: ePHEDrine 50 mg/ml Inj ONE (07:15)
[2016-10-11] MEDS ORDERED: Succinylcholine 200 mg/10 ml Inj IV ONE (07:15)
--- NOTE | 2016-10-11 07:47 | CP.PCM.PN ---
Subjective - Date & Time of Evaluation Date of Evaluation: 10/11/16 Time of Evaluation: 07:35 - Subjective Subjective: Reviewed Pt's echo images. Pt stable to proceed with the planned Sx. Objective - Vital Signs/Intake and Output Vital Signs (last 24 hours): Temp Pulse Resp BP Pulse Ox 97.9 F 83 20 134/78 96 10/11/16 00:29 10/11/16 00:29 10/11/16 00:29 10/11/16 00:29 10/11/16 00:29 - Medications Medications: Current Medications Amlodipine Besylate (Norvasc) 10 mg PO DAILY [facility] Last Admin: 10/10/16 12:44 Dose: 10 mg Brimonidine Tartrate (Alphagan 0.2% Opht) 1 drop OU HS [facility] Last Admin: 10/10/16 22:28 Dose: 1 drop Carvedilol (Coreg) 12.5 mg PO BID [facility] Last Admin: 10/10/16 17:00 Dose: 12.5 mg Dextrose (Dextrose 50% Inj) 0 ml IV STAT PRN; Protocol PRN Reason: Hyglycemia Protocol Dextrose (Glutose 15) 0 gm PO ONCE PRN; Protocol PRN Reason: Hypoglycemia Protocol Furosemide (Lasix) 40 mg PO DAILY [facility] Last Admin: 10/10/16 08:29 Dose: 40 mg Gabapentin (Neurontin) 300 mg PO DAILY [facility] Last Admin: 10/10/16 08:28 Dose: 300 mg Glucagon (Glucagen Diagnostic Kit) 0 mg IM STAT PRN; Protocol PRN Reason: Hypoglycemia Protocol Home Med (Insulin Degludec [Tresiba Flextouch U-100]) 16 units SQ HS [facility] Hydromorphone HCl (Dilaudid) 1 mg IVP Q4 PRN PRN Reason: Pain, severe (8-10) Last Admin: 10/11/16 06:49 Dose: 1 mg Sodium Chloride (Sodium Chloride 0.9%) 1,000 mls @ 100 mls/hr IV .Q10H [facility] Stop: 10/11/16 20:27 Last Admin: 10/11/16 00:16 Dose: 100 mls/hr Insulin Human Lispro (Humalog) 0 units SC ACHS [facility] PRN Reason: Protocol Last Admin: 10/10/16 22:26 Dose: Not Given Latanoprost (Xalatan Opht) 1 drop OU HS [facility] Last Admin: 10/10/16 22:25 Dose: 1 drop Ondansetron HCl (Zofran Inj) 4 mg IVP Q6 PRN PRN Reason: Nausea/Vomiting Ramipril (Altace) 5 mg PO DAILY [facility] Last Admin: 10/10/16 12:44 Dose: 5 mg Zolpidem Tartrate (Ambien) 5 mg PO HS PRN PRN Reason: Insomnia - Labs Labs: PT 9.9 Seconds (9.8-13.1) 10/10/16 00:25 INR 0.9 (0.9-1.2) 10/10/16 00:25 APTT 24.4 Seconds (25.6-37.1) L 10/11/16 06:35
[2016-10-11 07:50] LABS: ALKALINE PHOSPHATASE 72 U/L (38-126); ALT/SGPT 37 U/L (21-72); AST/SGOT 40 U/L (17-59); BILIRUBIN,TOTAL 0.4 mg/dl (0.2-1.3); BLOOD UREA NITROGEN 32 mg/dl (9-20); CALCIUM 9.1 mg/dL (8.4-10.2); CARBON DIOXIDE 26 mmol/L (22-30); CHLORIDE 99 mmol/L (98-107); GFR AFRICAN-AMERICAN > 60; GLUCOSE,RANDOM 264 mg/dL (75-110); POTASSIUM 4.6 MMOL/L (3.6-5.0); SODIUM 134 mmol/l (132-148); TOTAL PROTEIN 7.3 G/DL (6.3-8.2)
--- NOTE | 2016-10-11 07:51 | CP.PCM.PN ---
<Gifty Triana - Last Filed: 10/11/16 07:50> Subjective - Date & Time of Evaluation Date of Evaluation: 10/11/16 Time of Evaluation: 07:51 - Subjective Subjective: Reviewed chart. Vitals stable. Patient cleared by cardiology. Patient medically optimized for procedure. Objective - Vital Signs/Intake and Output Vital Signs (last 24 hours): Temp Pulse Resp BP Pulse Ox 97.9 F 83 20 134/78 96 10/11/16 00:29 10/11/16 00:29 10/11/16 00:29 10/11/16 00:29 10/11/16 00:29 - Medications Medications: Current Medications Amlodipine Besylate (Norvasc) 10 mg PO DAILY [facility] Last Admin: 10/10/16 12:44 Dose: 10 mg Brimonidine Tartrate (Alphagan 0.2% Opht) 1 drop OU HS [facility] Last Admin: 10/10/16 22:28 Dose: 1 drop Carvedilol (Coreg) 12.5 mg PO BID [facility] Last Admin: 10/10/16 17:00 Dose: 12.5 mg Dextrose (Dextrose 50% Inj) 0 ml IV STAT PRN; Protocol PRN Reason: Hyglycemia Protocol Dextrose (Glutose 15) 0 gm PO ONCE PRN; Protocol PRN Reason: Hypoglycemia Protocol Furosemide (Lasix) 40 mg PO DAILY [facility] Last Admin: 10/10/16 08:29 Dose: 40 mg Gabapentin (Neurontin) 300 mg PO DAILY [facility] Last Admin: 10/10/16 08:28 Dose: 300 mg Glucagon (Glucagen Diagnostic Kit) 0 mg IM STAT PRN; Protocol PRN Reason: Hypoglycemia Protocol Home Med (Insulin Degludec [Tresiba Flextouch U-100]) 16 units SQ HS [facility] Hydromorphone HCl (Dilaudid) 1 mg IVP Q4 PRN PRN Reason: Pain, severe (8-10) Last Admin: 10/11/16 06:49 Dose: 1 mg Sodium Chloride (Sodium Chloride 0.9%) 1,000 mls @ 100 mls/hr IV .Q10H [facility] Stop: 10/11/16 20:27 Last Admin: 10/11/16 00:16 Dose: 100 mls/hr Insulin Human Lispro (Humalog) 0 units SC ACHS [facility] PRN Reason: Protocol Last Admin: 10/10/16 22:26 Dose: Not Given Latanoprost (Xalatan Opht) 1 drop OU HS [facility] Last Admin: 10/10/16 22:25 Dose: 1 drop Ondansetron HCl (Zofran Inj) 4 mg IVP Q6 PRN PRN Reason: Nausea/Vomiting Ramipril (Altace) 5 mg PO DAILY [facility] Last Admin: 10/10/16 12:44 Dose: 5 mg Zolpidem Tartrate (Ambien) 5 mg PO HS PRN PRN Reason: Insomnia - Labs Labs: PT 9.9 Seconds (9.8-13.1) 10/10/16 00:25 INR 0.9 (0.9-1.2) 10/10/16 00:25 APTT 24.4 Seconds (25.6-37.1) L 10/11/16 06:35 <Dipak Samuel - Last Filed: 10/11/16 08:06> Objective - Vital Signs/Intake and Output Vital Signs (last 24 hours): Temp Pulse Resp BP Pulse Ox 97.9 F 83 20 134/78 96 10/11/16 00:29 10/11/16 00:29 10/11/16 00:29 10/11/16 00:29 10/11/16 00:29 - Medications Medications: Current Medications Amlodipine Besylate (Norvasc) 10 mg PO DAILY [facility] Last Admin: 10/10/16 12:44 Dose: 10 mg Brimonidine Tartrate (Alphagan 0.2% Opht) 1 drop OU HS [facility] Last Admin: 10/10/16 22:28 Dose: 1 drop Carvedilol (Coreg) 12.5 mg PO BID [facility] Last Admin: 10/11/16 08:03 Dose: 12.5 mg Dextrose (Dextrose 50% Inj) 0 ml IV STAT PRN; Protocol PRN Reason: Hyglycemia Protocol Dextrose (Glutose 15) 0 gm PO ONCE PRN; Protocol PRN Reason: Hypoglycemia Protocol Furosemide (Lasix) 40 mg PO DAILY [facility] Last Admin: 10/10/16 08:29 Dose: 40 mg Gabapentin (Neurontin) 300 mg PO DAILY [facility] Last Admin: 10/10/16 08:28 Dose: 300 mg Glucagon (Glucagen Diagnostic Kit) 0 mg IM STAT PRN; Protocol PRN Reason: Hypoglycemia Protocol Home Med (Insulin Degludec [Tresiba Flextouch U-100]) 16 units SQ HS [facility] Hydromorphone HCl (Dilaudid) 1 mg IVP Q4 PRN PRN Reason: Pain, severe (8-10) Last Admin: 10/11/16 06:49 Dose: 1 mg Sodium Chloride (Sodium Chloride 0.9%) 1,000 mls @ 100 mls/hr IV .Q10H [facility] Stop: 10/11/16 20:27 Last Admin: 10/11/16 00:16 Dose: 100 mls/hr Insulin Human Lispro (Humalog) 0 units SC ACHS [facility] PRN Reason: Protocol Last Admin: 10/10/16 22:26 Dose: Not Given Latanoprost (Xalatan Opht) 1 drop OU HS [facility] Last Admin: 10/10/16 22:25 Dose: 1 drop Ondansetron HCl (Zofran Inj) 4 mg IVP Q6 PRN PRN Reason: Nausea/Vomiting Ramipril (Altace) 5 mg PO DAILY [facility] Last Admin: 10/10/16 12:44 Dose: 5 mg Zolpidem Tartrate (Ambien) 5 mg PO HS PRN PRN Reason: Insomnia - Labs Labs: 10/11/16 06:35 PT 9.9 Seconds (9.8-13.1) 10/10/16 00:25 INR 0.9 (0.9-1.2) 10/10/16 00:25 APTT 24.4 Seconds (25.6-37.1) L 10/11/16 06:35 Attending/Attestation - Attestation I have personally seen and examined this patient.: Yes I have fully participated in the care of the patient.: Yes I have reviewed all pertinent clinical information, including history, physical exam and plan: Yes
[2016-10-11] MEDS ORDERED: Lidocaine 1% Inj (20ml) ONE (07:53)
[2016-10-11] MEDS ORDERED: Bupivacaine 0.5% Inj(30mL) ONE (07:53)
[2016-10-11] MEDS ORDERED: Bacitracin Ointment 30 GM TUBE ONE (07:54)
[2016-10-11] MEDS: Insulin Lispro (humaLOG) 100 Units/ml Inj SC SCH ×5 (08:00→21:28)
[2016-10-11] MEDS ORDERED: Lactated Ringer's 1,000 ML IV ONE ×3 (08:52→14:29)
[2016-10-11] MEDS ORDERED: HYDROmorphone 0.5 mg/0.5 ml ISec ONE (13:21)
[2016-10-11] MEDS: HYDROmorphone 0.5 mg/0.5 ml ISec IVP PRN ×3 (13:22→14:05)
--- NOTE | 2016-10-11 14:23 | PCM.SURG1 ---
Surgeon's Initial Post Op Note - Surgeon's Notes Surgeon: Dr. Horacio Osorio [employer] Worker: Mely Banks PA-C,Dr. Flora Ortega Type of Anesthesia: General Endo Anesthesia Administered By: Dr. Fany Bernard Pre-Operative Diagnosis: Right Communicated Proximal Femur Fracture Operative Findings: see operative note Post-Operative Diagnosis: same Operation Performed: Right Hip Intramedullary Nailing (Synthes Nail 360mm,5.0 mm Locking Screws) Specimen/Specimens Removed: none Estimated Blood Loss: EBL {In ML}: 200 Drains Used: No Drains Post-Op Condition: Good Date of Surgery/Procedure: 10/11/16 Time of Surgery/Procedure: 09:00
--- NOTE | 2016-10-11 16:02 | RAD ---
PROCEDURE: Left femur dated 10/11/2016. HISTORY: Status post right femoral IA minimal Right Femoral IM Nail COMPARISON: Correlation made with prior studies dated 10/10/2016 TECHNIQUE: AP view of the mid and distal right femur performed. FINDINGS: Study demonstrates in situ intramedullary fixation cortez right femur all which is transfixed distally right to transversely oriented fully threaded screws. Expected unremarkable postoperative changes which include small amount subcutaneous air and infiltration of the subcutaneous tissues. IMPRESSION: Study demonstrates in situ intramedullary fixation cortez right femur all which is transfixed distally right to transversely oriented fully threaded screws. Expected unremarkable postoperative changes which include small amount subcutaneous air and infiltration of the subcutaneous tissues.
--- NOTE | 2016-10-11 16:06 | RAD ---
PROCEDURE: Right Hip Radiographs. 10/11/2016. HISTORY: Postoperative right femoral intramedullary nail COMPARISON: Correlation made with concurrent radiographs of the right femur as well as prior radiographs of the pelvis and right hip dated 10/10/2016 FINDINGS: BONES: AP view of the pelvis and a proximal right femur performed JOINTS: Status post placement of compression screw through the right femoral neck securing a right femoral intramedullary fixation cortez reducing a fracture of the proximal right femur that extend through the lesser trochanter. Satisfactory alignment. Both femoral heads are appropriately located within the respective acetabula. Degenerative changes both hip joints SOFT TISSUES: Small amount of subcutaneous air and infiltration changes within the lateral soft tissues OTHER FINDINGS: Mild degenerative spondylosis visualized lumbosacral spine IMPRESSION: Status post placement of compression screw through the right femoral neck securing a right femoral intramedullary fixation cortez reducing a fracture of the proximal right femur that extend through the lesser trochanter. Satisfactory alignment
--- NOTE | 2016-10-11 18:39 | CP.PCM.PN ---
<Rasta Cortez - Last Filed: 10/11/16 19:35> Subjective - Date & Time of Evaluation Date of Evaluation: 10/11/16 Time of Evaluation: 19:00 - Subjective Subjective: Medical Post-OP Note 71 y.o. male patient seen at bedside on the medsurge unit lying in bed wide awake and in no distress. Pt. is s/p Right Femoral Intramedullary Nailing POD#[address] Horacio Osorio. Pt. tolerated procedure well with and EBL of 200cc. Pt. reports he had a mechanical fall at home which resulted in Right communicated Proximal Femur Fracture. Pt. at this time with no complaints. Pt. reports pain is well controlled and does not need any medications at this time and will ask if requried. Pt. also states has voided without difficulty and is starting to drinking liquids but does not have an appetite for now. Pt. denies any fever, chills, nausea, vomiting, chest pain, or shortness of breath at this time. Objective - Vital Signs/Intake and Output Vital Signs (last 24 hours): Temp Pulse Resp BP Pulse Ox 97.4 F L 92 H 18 130/75 100 10/11/16 18:00 10/11/16 18:00 10/11/16 18:00 10/11/16 18:00 10/11/16 18:00 Intake and Output: 10/11/16 10/11/16 06:59 18:59 Intake Total 2150 Balance 2150 - Medications Medications: Current Medications Amlodipine Besylate (Norvasc) 10 mg PO DAILY [facility] Last Admin: 10/11/16 16:42 Dose: 10 mg Aspirin (Aspirin) 325 mg PO DAILY [facility] Last Admin: 10/11/16 16:37 Dose: 325 mg Brimonidine Tartrate (Alphagan 0.2% Opht) 1 drop OU HS [facility] Last Admin: 10/10/16 22:28 Dose: 1 drop Carvedilol (Coreg) 12.5 mg PO BID [facility] Last Admin: 10/11/16 16:37 Dose: 12.5 mg Dextrose (Dextrose 50% Inj) 0 ml IV STAT PRN; Protocol PRN Reason: Hyglycemia Protocol Dextrose (Glutose 15) 0 gm PO ONCE PRN; Protocol PRN Reason: Hypoglycemia Protocol Enoxaparin Sodium (Lovenox) 40 mg SC DAILY [facility] PRN Reason: Protocol Furosemide (Lasix) 40 mg PO DAILY [facility] Last Admin: 10/11/16 16:41 Dose: 40 mg Gabapentin (Neurontin) 300 mg PO DAILY [facility] Last Admin: 10/11/16 16:42 Dose: 300 mg Glucagon (Glucagen Diagnostic Kit) 0 mg IM STAT PRN; Protocol PRN Reason: Hypoglycemia Protocol Home Med (Insulin Degludec [Tresiba Flextouch U-100]) 16 units SQ HS [facility] Hydromorphone HCl (Dilaudid) 1 mg IVP Q4 PRN PRN Reason: Pain, severe (8-10) Last Admin: 10/11/16 06:49 Dose: 1 mg Sodium Chloride (Sodium Chloride 0.9%) 1,000 mls @ 100 mls/hr IV .Q10H [facility] Stop: 10/11/16 20:27 Last Admin: 10/11/16 09:00 Dose: Not Given Cefazolin Sodium 1 gm/ Sodium (Chloride) 100 mls @ 100 mls/hr IVPB Q8 [facility] Stop: 10/12/16 09:59 Insulin Human Lispro (Humalog) 0 units SC ACHS [facility] PRN Reason: Protocol Last Admin: 10/11/16 16:39 Dose: 6 units Latanoprost (Xalatan Opht) 1 drop OU HS [facility] Last Admin: 10/10/16 22:25 Dose: 1 drop Ondansetron HCl (Zofran Inj) 4 mg IVP Q6 PRN PRN Reason: Nausea/Vomiting Oxycodone/Acetaminophen (Percocet 5/325 Mg Tab) 2 tab PO Q4 PRN PRN Reason: Pain, moderate (4-7) Stop: 10/14/16 15:33 Ramipril (Altace) 5 mg PO DAILY [facility] Last Admin: 10/11/16 16:37 Dose: 5 mg Zolpidem Tartrate (Ambien) 5 mg PO HS PRN PRN Reason: Insomnia - Labs Labs: 10/11/16 06:35 PT 9.9 Seconds (9.8-13.1) 10/10/16 00:25 INR 0.9 (0.9-1.2) 10/10/16 00:25 APTT 24.4 Seconds (25.6-37.1) L 10/11/16 06:35 - Constitutional Appears: Non-toxic, No Acute Distress - Respiratory Exam Respiratory Exam: Clear to Ausculation Bilateral, NORMAL BREATHING PATTERN - Cardiovascular Exam Cardiovascular Exam: REGULAR RHYTHM, +S1, +S2 - Extremities Exam Extremities Exam: Normal Capillary Refill. absent: Calf Tenderness, Pedal Edema Additional comments: +Pedal pulses symmetrical bilaterally +2 +RT lower limb with JANNA Bandage clean dry intact with no drains in place +Pt. able to move all five toes bilaterally without difficulty with sensation intact - Neurological Exam Neurological Exam: Alert, Awake, Oriented x3 Assessment and Plan - Assessment and Plan (Free Text) Assessment: 71 y.o. male s/p Right Femoral Intramedullary Nailing POD#0 having tolerated procedure well 1- CBC in a.m. 2- Incentive spirometry 3- Pain management 4- PT/OT 5- Advance diet as tolerated- D/C fluids 6- Lovenox for DVT prophylaxis 7- Surgery on board - Input appreciated <Dipak Samuel - Last Filed: 10/12/16 07:01> Objective - Vital Signs/Intake and Output Vital Signs (last 24 hours): Temp Pulse Resp BP Pulse Ox 98.6 F 110 H 19 112/67 95 10/12/16 04:15 10/12/16 04:15 10/12/16 04:15 10/12/16 04:15 10/12/16 04:15 - Medications Medications: Current Medications Amlodipine Besylate (Norvasc) 10 mg PO DAILY [facility] Last Admin: 10/11/16 16:42 Dose: 10 mg Aspirin (Aspirin) 325 mg PO DAILY [facility] Last Admin: 10/11/16 16:37 Dose: 325 mg Brimonidine Tartrate (Alphagan 0.2% Opht) 1 drop OU HS [facility] Last Admin: 10/11/16 21:45 Dose: 1 drop Carvedilol (Coreg) 12.5 mg PO BID [facility] Last Admin: 10/11/16 16:37 Dose: 12.5 mg Dextrose (Dextrose 50% Inj) 0 ml IV STAT PRN; Protocol PRN Reason: Hyglycemia Protocol Dextrose (Glutose 15) 0 gm PO ONCE PRN; Protocol PRN Reason: Hypoglycemia Protocol Enoxaparin Sodium (Lovenox) 40 mg SC DAILY [facility] PRN Reason: Protocol Furosemide (Lasix) 40 mg PO DAILY [facility] Last Admin: 10/11/16 16:41 Dose: 40 mg Gabapentin (Neurontin) 300 mg PO DAILY [facility] Last Admin: 10/11/16 16:42 Dose: 300 mg Glucagon (Glucagen Diagnostic Kit) 0 mg IM STAT PRN; Protocol PRN Reason: Hypoglycemia Protocol Home Med (Insulin Degludec [Tresiba Flextouch U-100]) 16 units SQ HS [facility] Hydromorphone HCl (Dilaudid) 1 mg IVP Q4 PRN PRN Reason: Pain, severe (8-10) Last Admin: 10/12/16 04:50 Dose: 1 mg Cefazolin Sodium 1 gm/ Sodium (Chloride) 100 mls @ 100 mls/hr IVPB Q8 [facility] Stop: 10/12/16 09:59 Last Admin: 10/12/16 00:01 Dose: 100 mls/hr Insulin Human Lispro (Humalog) 0 units SC ACHS [facility] PRN Reason: Protocol Last Admin: 10/11/16 21:28 Dose: Not Given Latanoprost (Xalatan Opht) 1 drop OU HS [facility] Last Admin: 10/11/16 21:38 Dose: 1 drop Ondansetron HCl (Zofran Inj) 4 mg IVP Q6 PRN PRN Reason: Nausea/Vomiting Oxycodone/Acetaminophen (Percocet 5/325 Mg Tab) 2 tab PO Q4 PRN PRN Reason: Pain, moderate (4-7) Stop: 10/14/16 15:33 Ramipril (Altace) 5 mg PO DAILY [facility] Last Admin: 10/11/16 16:37 Dose: 5 mg Zolpidem Tartrate (Ambien) 5 mg PO HS PRN PRN Reason: Insomnia Last Admin: 10/11/16 23:56 Dose: 5 mg - Labs Labs: 10/12/16 05:50 PT 9.9 Seconds (9.8-13.1) 10/10/16 00:25 INR 0.9 (0.9-1.2) 10/10/16 00:25 APTT 24.4 Seconds (25.6-37.1) L 10/11/16 06:35 Attending/Attestation - Attestation I have personally seen and examined this patient.: Yes I have fully participated in the care of the patient.: Yes I have reviewed all pertinent clinical information, including history, physical exam and plan: Yes
[2016-10-11] MEDS: ceFAZolin 1 GM in Sodium Chloride 0.9% 100 ML IVPB SCH (18:56)
[2016-10-11] MEDS: Latanoprost 0.005% Opht SOUTION OU SCH (21:38)
[2016-10-11] MEDS: Brimonidine 0.2% 50 DROP/5 ML BOTTLE OU SCH (21:45)
[2016-10-12] MEDS: ceFAZolin 1 GM in Sodium Chloride 0.9% 100 ML IVPB SCH ×2 (00:01→08:27)
[2016-10-12] MEDS ORDERED: ceFAZolin 1 GM in Sodium Chloride 0.9% 100 ML IVPB SCH (01:00)
[2016-10-12 06:47] LABS: BASO % 0.3 % (0.0-2.0); EOS # 0.2 K/uL (0.0-0.7); EOS % 1.5 % (0.0-4.0); HEMATOCRIT 21.7 % (35.0-51.0); LYMPH # 1.3 K/uL (1.0-4.3); LYMPH % 10.1 % (20.0-40.0); MEAN CELL VOLUME 87.4 fl (80.0-94.0); MEAN CORPUSCULAR HGB CONC 33.2 g/dL (33.0-37.0); MONO # 1.6 K/uL (0.0-0.8); MONO % 12.2 % (0.0-10.0); NEUT # 9.8 K/uL (1.8-7.0); NEUT % 75.9 % (50.0-75.0); RED CELL DISTRIBUTION WIDTH 13.6 % (11.5-14.5); WHITE BLOOD COUNT 12.9 K/uL (4.8-10.8)
[2016-10-12 06:52] LABS: CALCIUM 8.1 mg/dL (8.4-10.2)
[2016-10-12 06:55] LABS: POTASSIUM 5.3 MMOL/L (3.6-5.0)
[2016-10-12] MEDS: Insulin Lispro (humaLOG) 100 Units/ml Inj SC SCH ×4 (08:14→22:54)
--- NOTE | 2016-10-12 08:14 | CP.PCM.PN ---
<Sabina Reddy - Last Filed: 10/12/16 18:55> Subjective - Date & Time of Evaluation Date of Evaluation: 10/12/16 Time of Evaluation: 07:15 - Subjective Subjective: Patient is POD #1 s/p right femoral intramedullary nailing Patient seen and examined at bedside, no acute events overnight. Denies chest pain, SOB or dizziness. Reports he would like to get out of bed, aware PT order is already in, has normal urine output, tolerating PO diet, states his will bring in his home insulin as we do not have his type on formulary. Has no other concerns or complaints at this time. Objective - Vital Signs/Intake and Output Vital Signs (last 24 hours): Temp Pulse Resp BP Pulse Ox 98.0 F 113 H 20 118/71 92 L 10/12/16 07:36 10/12/16 07:36 10/12/16 07:36 10/12/16 07:36 10/12/16 07:36 - Medications Medications: Current Medications Amlodipine Besylate (Norvasc) 10 mg PO DAILY [facility] Last Admin: 10/11/16 16:42 Dose: 10 mg Aspirin (Aspirin) 325 mg PO DAILY [facility] Last Admin: 10/11/16 16:37 Dose: 325 mg Brimonidine Tartrate (Alphagan 0.2% Opht) 1 drop OU HS [facility] Last Admin: 10/11/16 21:45 Dose: 1 drop Carvedilol (Coreg) 12.5 mg PO BID [facility] Last Admin: 10/11/16 16:37 Dose: 12.5 mg Dextrose (Dextrose 50% Inj) 0 ml IV STAT PRN; Protocol PRN Reason: Hyglycemia Protocol Dextrose (Glutose 15) 0 gm PO ONCE PRN; Protocol PRN Reason: Hypoglycemia Protocol Enoxaparin Sodium (Lovenox) 40 mg SC DAILY [facility] PRN Reason: Protocol Furosemide (Lasix) 40 mg PO DAILY [facility] Last Admin: 10/11/16 16:41 Dose: 40 mg Gabapentin (Neurontin) 300 mg PO DAILY [facility] Last Admin: 10/11/16 16:42 Dose: 300 mg Glucagon (Glucagen Diagnostic Kit) 0 mg IM STAT PRN; Protocol PRN Reason: Hypoglycemia Protocol Home Med (Insulin Degludec [Tresiba Flextouch U-100]) 16 units SQ HS [facility] Hydromorphone HCl (Dilaudid) 1 mg IVP Q4 PRN PRN Reason: Pain, severe (8-10) Last Admin: 10/12/16 04:50 Dose: 1 mg Cefazolin Sodium 1 gm/ Sodium (Chloride) 100 mls @ 100 mls/hr IVPB Q8 [facility] Stop: 10/12/16 09:59 Last Admin: 10/12/16 00:01 Dose: 100 mls/hr Insulin Human Lispro (Humalog) 0 units SC ACHS [facility] PRN Reason: Protocol Last Admin: 10/11/16 21:28 Dose: Not Given Latanoprost (Xalatan Opht) 1 drop OU HS [facility] Last Admin: 10/11/16 21:38 Dose: 1 drop Ondansetron HCl (Zofran Inj) 4 mg IVP Q6 PRN PRN Reason: Nausea/Vomiting Oxycodone/Acetaminophen (Percocet 5/325 Mg Tab) 2 tab PO Q4 PRN PRN Reason: Pain, moderate (4-7) Stop: 10/14/16 15:33 Ramipril (Altace) 5 mg PO DAILY [facility] Last Admin: 10/11/16 16:37 Dose: 5 mg Zolpidem Tartrate (Ambien) 5 mg PO HS PRN PRN Reason: Insomnia Last Admin: 10/11/16 23:56 Dose: 5 mg - Labs Labs: 10/12/16 05:50 10/12/16 05:50 PT 9.9 Seconds (9.8-13.1) 10/10/16 00:25 INR 0.9 (0.9-1.2) 10/10/16 00:25 APTT 24.4 Seconds (25.6-37.1) L 10/11/16 06:35 - Constitutional Appears: Non-toxic, No Acute Distress - Head Exam Additional comments: improving 1 cm nontender subcutaneous swelling of left parietal area - Eye Exam Eye Exam: EOMI, PERRL - ENT Exam ENT Exam: Mucous Membranes Moist - Neck Exam Neck Exam: Full ROM. absent: Lymphadenopathy - Respiratory Exam Respiratory Exam: Clear to Ausculation Bilateral, NORMAL BREATHING PATTERN - Cardiovascular Exam Cardiovascular Exam: REGULAR RHYTHM, +S1, +S2 - GI/Abdominal Exam GI & Abdominal Exam: Soft (obese). absent: Distended, Tenderness - Extremities Exam Extremities Exam: Full ROM (of bilateral upper and left lower extremity, right lower extremity in extension:dressing over proximal femur clean/dry/intact ; patient can wiggle toes, pulses 2+ throughout) - Back Exam Back Exam: absent: CVA tenderness (L), CVA tenderness (R) - Neurological Exam Neurological Exam: Alert, Awake, CN II-XII Intact, Oriented x3 - Psychiatric Exam Psychiatric exam: Normal Affect, Normal Mood - Skin Skin Exam: Dry, Intact, Warm Assessment and Plan - Assessment and Plan (Free Text) Assessment: 71 yr old M POD# 1 s/p Right femoral intramedullary nailing. Patient was admitted for severe right hip pain and decreased ROM secondary to traumatic fall. Patient was found to have a intertrochanteric fracture of the right hip. 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 Patient has asymptomatic anemia with H/H of 6.5/19.3. 1. Asymptomatic Anemia -stable, H/H of 6.5/19.3 -transfuse 2 units leukocyte reduced pRBC's -f/u CBC 2. Tachycardia -stable, likely secondary to anemia vs pain -pt stable, will monitor vital signs 3. Hyperkalemia -K 5.3 this AM -kayexalate 15gm PO once -f/u CMP 4. Fracture of Right Hip secondary to traumatic fall -stable, pt is POD #1 s/p Right femoral intramedullary nailing -Hip xray s/p surgery: satisfactory alignment of proximal right femur through lesser trochanter -Ortho Consult, Dr. Sullivan: Will follow recommendations -Cardiology consult appreciated Dr. Gaona, will follow recommendations -Pain management: Percocet PRN -PT/OT consult appreciated: will follow recommendations 5. DM2 -uncontrolled -Insulin Lispro SC ACHS -Contine Home meds (Glucovance and Insulin Degludec 16u SC HS, will bring in home meds) -Carbohydrate consistent diet -monitor POC glucose 6. HTN w h/o CAD, CABG x5 -chronic, controlled -continue home meds: ASA 325mg PO Daily, Ramipril 5mg PO Daily, Coreg 12.5mg PO BID, Lasix 40mg PO Daily -discontinue -d/c Spironolactone 50mg PO Daily per cardiology -monitor BP 7. Left Corneal Transplant -Brimonidine 0.2% 1 drop OU HS -Latanoprost 0.005% 1 drop OU HS 8. DVT Prophylaxis -Lovenox 40mg SC QD -SCDs <Dipak Samuel - Last Filed: 10/19/16 07:04> Objective - Vital Signs/Intake and Output Vital Signs (last 24 hours): Temp Pulse Resp BP Pulse Ox 98.4 F 91 H 20 148/72 95 10/15/16 08:35 10/15/16 08:35 10/15/16 08:35 10/15/16 08:35 10/15/16 08:35 - Labs Labs: 10/15/16 05:30 10/15/16 05:30 PT 9.9 Seconds (9.8-13.1) 10/10/16 00:25 INR 0.9 (0.9-1.2) 10/10/16 00:25 APTT 24.4 Seconds (25.6-37.1) L 10/11/16 06:35 Attending/Attestation - Attestation I have personally seen and examined this patient.: Yes I have fully participated in the care of the patient.: Yes I have reviewed all pertinent clinical information, including history, physical exam and plan: Yes
[2016-10-12] MEDS: Enoxaparin 40 mg Syringe SC SCH (08:16)
[2016-10-12] MEDS ORDERED: Sod Polystyrene Sulf 15 gm/60 ml Oral Susp PO ONE (08:17)
[2016-10-12] MEDS: Oxycodone/Acetaminophen 5/325 mg Tab PO PRN ×2 (08:25→20:56)
--- NOTE | 2016-10-12 08:26 | CP.PCM.PN ---
Subjective - Date & Time of Evaluation Date of Evaluation: 10/12/16 Time of Evaluation: 08:15 - Subjective Subjective: Had a fairly comfortable night with some surgical pain No fever or dyspnoea Mildly pale with HR 110 BPM (Probably reflects anemia, Hb 7.2 gms) BP 110/0 mm Hg No signs of CHF No calf tenderness Surgical site dry Creatinin up (1.6 Mg%) K+ 5.3 mEq/L (Restarted pt on Kayexalate) Pt will need blood transfusion. Stable from cardiac point of view. Objective - Vital Signs/Intake and Output Vital Signs (last 24 hours): Temp Pulse Resp BP Pulse Ox 98.0 F 113 H 20 118/71 92 L 10/12/16 07:36 10/12/16 07:36 10/12/16 07:36 10/12/16 08:17 10/12/16 07:36 - Medications Medications: Current Medications Amlodipine Besylate (Norvasc) 10 mg PO DAILY [facility] Last Admin: 10/12/16 08:18 Dose: 10 mg Aspirin (Aspirin) 325 mg PO DAILY [facility] Last Admin: 10/12/16 08:20 Dose: 325 mg Brimonidine Tartrate (Alphagan 0.2% Opht) 1 drop OU HS [facility] Last Admin: 10/11/16 21:45 Dose: 1 drop Carvedilol (Coreg) 12.5 mg PO BID [facility] Last Admin: 10/12/16 08:17 Dose: 12.5 mg Dextrose (Dextrose 50% Inj) 0 ml IV STAT PRN; Protocol PRN Reason: Hyglycemia Protocol Dextrose (Glutose 15) 0 gm PO ONCE PRN; Protocol PRN Reason: Hypoglycemia Protocol Enoxaparin Sodium (Lovenox) 40 mg SC DAILY [facility] PRN Reason: Protocol Last Admin: 10/12/16 08:16 Dose: 40 mg Furosemide (Lasix) 40 mg PO DAILY [facility] Last Admin: 10/12/16 08:17 Dose: 40 mg Gabapentin (Neurontin) 300 mg PO DAILY [facility] Last Admin: 10/12/16 08:17 Dose: 300 mg Glucagon (Glucagen Diagnostic Kit) 0 mg IM STAT PRN; Protocol PRN Reason: Hypoglycemia Protocol Home Med (Insulin Degludec [Tresiba Flextouch U-100]) 16 units SQ HS [facility] Hydromorphone HCl (Dilaudid) 1 mg IVP Q4 PRN PRN Reason: Pain, severe (8-10) Last Admin: 10/12/16 04:50 Dose: 1 mg Cefazolin Sodium 1 gm/ Sodium (Chloride) 100 mls @ 100 mls/hr IVPB Q8 [facility] Stop: 10/12/16 09:59 Last Admin: 10/12/16 00:01 Dose: 100 mls/hr Insulin Human Lispro (Humalog) 0 units SC ACHS [facility] PRN Reason: Protocol Last Admin: 10/12/16 08:14 Dose: 8 units Latanoprost (Xalatan Opht) 1 drop OU HS [facility] Last Admin: 10/11/16 21:38 Dose: 1 drop Ondansetron HCl (Zofran Inj) 4 mg IVP Q6 PRN PRN Reason: Nausea/Vomiting Oxycodone/Acetaminophen (Percocet 5/325 Mg Tab) 2 tab PO Q4 PRN PRN Reason: Pain, moderate (4-7) Stop: 10/14/16 15:33 Ramipril (Altace) 5 mg PO DAILY [facility] Last Admin: 10/12/16 08:16 Dose: 5 mg Zolpidem Tartrate (Ambien) 5 mg PO HS PRN PRN Reason: Insomnia Last Admin: 10/11/16 23:56 Dose: 5 mg - Labs Labs: 10/12/16 05:50 10/12/16 05:50 PT 9.9 Seconds (9.8-13.1) 10/10/16 00:25 INR 0.9 (0.9-1.2) 10/10/16 00:25 APTT 24.4 Seconds (25.6-37.1) L 10/11/16 06:35
--- NOTE | 2016-10-12 08:42 | PQF GENQUE ---
Dr. Oh, Is there an associated diagnosis to go along with the following labs:H/H:10.3/ 30.9-> 7.2/21.7 OR:Disagree OR: Unable to determine Post-Op note:Pre-Operative Diagnosis: Right Communicated Proximal Femur Fracture Operative Findings: see operative note Post-Operative Diagnosis: same Operation Performed: Right Femoral Intramedullary Nailing (Synthes Nail 360mm, 5.0 mm Locking Screws transfused This form is a permanent part of the medical record Clarification of your documentation is requested to better reflect the severity of illness and intensity of treatment of your patient. Indicators present [] Specify: [] [] Specify: [] [] Specify: [] [] Specify: [] Location in the medical record that reflects the above clinical findings: [] Treatment Provided: [] PHYSICIAN'S RESPONSE Based on your medical judgment of the clinical indicators outlined above please clarify the following: [] Practitioner response [] If unable to determine, please check the box, sign and date. Present On Admission (POA) Indicator: [] Present at the time of admission [] Not present at the time of admission [] Clinically Undetermined In responding to this query, please exercise your independent professional judgment. The fact that a question is asked does not imply that any particular answer is desired or expected. Thank you for your clarification on this documentation. If you have any questions please call. * Thank you, Kellie Rios RN BSN ext. #[phone] MTDD
[2016-10-12 12:10] LABS: HEMATOCRIT 19.3 % (35.0-51.0); MEAN CELL VOLUME 87.8 fl (80.0-94.0); MEAN CORPUSCULAR HEMOGLOBIN 29.5 pg (27.0-31.0); MEAN CORPUSCULAR HGB CONC 33.6 g/dL (33.0-37.0); RED CELL DISTRIBUTION WIDTH 13.4 % (11.5-14.5)
--- NOTE | 2016-10-12 16:04 | RAD ---
PROCEDURE: Fluoroscopy up to 1 hr. HISTORY: RIGHT HIP FX COMPARISON: None TECHNIQUE: Standard FINDINGS: Total fluoroscopic time (continuous mode) utilized during the procedure: 437.4 seconds. IMPRESSION: Submitted images from the current procedure: 8.0. Less than 1 hr fluoroscopic time utilized during performance of the procedure.
[2016-10-12] MEDS: Brimonidine 0.2% 50 DROP/5 ML BOTTLE OU SCH (22:52)
[2016-10-12] MEDS: Latanoprost 0.005% Opht SOUTION OU SCH (22:52)
[2016-10-12] MEDS: INSULIN DEGLUDEC 16 UNIT SQ SCH (22:54)
[2016-10-13 07:29] LABS: BASO # 0.1 K/uL (0.0-0.2); BASO % 0.4 % (0.0-2.0); EOS # 0.2 K/uL (0.0-0.7); EOS % 1.5 % (0.0-4.0); HEMATOCRIT 25.4 % (35.0-51.0); LYMPH # 1.3 K/uL (1.0-4.3); LYMPH % 10.2 % (20.0-40.0); MEAN CELL VOLUME 89.3 fl (80.0-94.0); MEAN CORPUSCULAR HEMOGLOBIN 30.1 pg (27.0-31.0); MEAN CORPUSCULAR HGB CONC 33.7 g/dL (33.0-37.0); MEAN PLATELET VOLUME 7.8 fl (7.2-11.7); MONO # 1.7 K/uL (0.0-0.8); MONO % 13.2 % (0.0-10.0); NEUT # 9.8 K/uL (1.8-7.0); NEUT % 74.7 % (50.0-75.0); RED CELL DISTRIBUTION WIDTH 13.5 % (11.5-14.5); WHITE BLOOD COUNT 13.2 K/uL (4.8-10.8)
[2016-10-13 07:46] LABS: BILIRUBIN,TOTAL 0.4 mg/dl (0.2-1.3); CALCIUM 8.1 mg/dL (8.4-10.2); POTASSIUM 4.8 MMOL/L (3.6-5.0); TOTAL PROTEIN 6.2 G/DL (6.3-8.2)
--- NOTE | 2016-10-13 08:54 | CP.PCM.PN ---
<Gifty Triana - Last Filed: 10/13/16 11:44> Subjective - Date & Time of Evaluation Date of Evaluation: 10/13/16 Time of Evaluation: 08:20 - Subjective Subjective: Patient is seen and examined at bedside with Dr. Oh. Patient is s/p Right Femoral Intramedullary Nailing POD#1. Patient received two units PRBC for hemoglobin of 6.5-repeat Hgb 8.6. Currently no symptoms-except mild numbing of b /l hands and legs. Pain currently controlled with IV and Po medication.Voiding with no difficulties, passing flatus. Has not ambulated with PT due to anemia. Vitals reviewed. No current complaints of shortness of breath, dizziness, palpitations, nausea/vomiting, chest pain. Objective - Vital Signs/Intake and Output Vital Signs (last 24 hours): Temp Pulse Resp BP Pulse Ox 98.2 F 102 H 20 136/76 92 L 10/13/16 07:20 10/13/16 07:20 10/13/16 07:20 10/13/16 07:20 10/13/16 07:20 - Medications Medications: Current Medications Amlodipine Besylate (Norvasc) 10 mg PO DAILY [facility] Last Admin: 10/12/16 08:18 Dose: 10 mg Aspirin (Aspirin) 325 mg PO DAILY [facility] Last Admin: 10/12/16 08:20 Dose: 325 mg Brimonidine Tartrate (Alphagan 0.2% Opht) 1 drop OU HS [facility] Last Admin: 10/12/16 22:52 Dose: 1 drop Carvedilol (Coreg) 12.5 mg PO BID [facility] Last Admin: 10/12/16 16:30 Dose: 12.5 mg Dextrose (Dextrose 50% Inj) 0 ml IV STAT PRN; Protocol PRN Reason: Hyglycemia Protocol Dextrose (Glutose 15) 0 gm PO ONCE PRN; Protocol PRN Reason: Hypoglycemia Protocol Enoxaparin Sodium (Lovenox) 40 mg SC DAILY [facility] PRN Reason: Protocol Last Admin: 10/12/16 08:16 Dose: 40 mg Ferrous Sulfate (Feosol) 325 mg PO TID [facility] Furosemide (Lasix) 40 mg PO DAILY [facility] Last Admin: 10/12/16 08:17 Dose: 40 mg Gabapentin (Neurontin) 300 mg PO DAILY [facility] Last Admin: 10/12/16 08:17 Dose: 300 mg Glucagon (Glucagen Diagnostic Kit) 0 mg IM STAT PRN; Protocol PRN Reason: Hypoglycemia Protocol Home Med (Insulin Degludec [Tresiba Flextouch U-100]) 16 units SQ HS [facility] Last Admin: 10/12/16 22:54 Dose: 16 units Hydromorphone HCl (Dilaudid) 1 mg IVP Q4 PRN PRN Reason: Pain, severe (8-10) Last Admin: 10/13/16 07:35 Dose: 1 mg Insulin Human Lispro (Humalog) 0 units SC [facility] PRN Reason: Protocol Last Admin: 10/12/16 22:54 Dose: 2 units Latanoprost (Xalatan Opht) 1 drop OU HS [facility] Last Admin: 10/12/16 22:52 Dose: 1 drop Ondansetron HCl (Zofran Inj) 4 mg IVP Q6 PRN PRN Reason: Nausea/Vomiting Oxycodone/Acetaminophen (Percocet 5/325 Mg Tab) 2 tab PO Q4 PRN PRN Reason: Pain, moderate (4-7) Stop: 10/14/16 15:33 Last Admin: 10/12/16 20:56 Dose: 2 tab Ramipril (Altace) 5 mg PO DAILY [facility] Last Admin: 10/12/16 08:16 Dose: 5 mg Zolpidem Tartrate (Ambien) 5 mg PO HS PRN PRN Reason: Insomnia Last Admin: 10/11/16 23:56 Dose: 5 mg - Labs Labs: 10/13/16 07:15 10/13/16 07:15 PT 9.9 Seconds (9.8-13.1) 10/10/16 00:25 INR 0.9 (0.9-1.2) 10/10/16 00:25 APTT 24.4 Seconds (25.6-37.1) L 10/11/16 06:35 - Constitutional Appears: No Acute Distress - ENT Exam ENT Exam: Mucous Membranes Moist - Neck Exam Neck Exam: Full ROM - Respiratory Exam Respiratory Exam: Clear to Ausculation Bilateral, NORMAL BREATHING PATTERN - Cardiovascular Exam Cardiovascular Exam: REGULAR RHYTHM, +S1, +S2 - GI/Abdominal Exam GI & Abdominal Exam: Soft. absent: Tenderness, Normal Bowel Sounds - Extremities Exam Extremities Exam: Normal Inspection. absent: Calf Tenderness Additional comments: RLE incisions C/D/I, - Back Exam Back Exam: absent: CVA tenderness (L), CVA tenderness (R) - Neurological Exam Neurological Exam: Alert, Awake - Psychiatric Exam Psychiatric exam: Normal Affect - Skin Skin Exam: Pallor Assessment and Plan - Assessment and Plan (Free Text) Assessment: 71 yr old M POD# 2 s/p Right femoral intramedullary nailing. Patient was admitted for severe right hip pain and decreased ROM secondary to traumatic fall. Patient was found to have a intertrochanteric fracture of the right hip. 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 Patient has asymptomatic anemia with H/H of 6.5/19.3. 1. Asymptomatic Anemia due to Acute blood loss -stable, H/H of 6.5/19.3 -frepeat Hgb s/p 2 units PRBC: 8.6 -ferrous sulfate 325 TID ordered with stool softners -will repeat CBC tomorrow 2. Tachycardia -stable, likely secondary to anemia vs pain -pt stable, will monitor vital signs 3. Hyperkalemia -improved K this morning 4.8 -K 5.3 this AM -kayexalate 15gm PO once, ramipril 5 mg held 4. Fracture of Right Hip secondary to traumatic fall -stable, pt is POD #2 s/p Right femoral intramedullary nailing -Hip xray s/p surgery: satisfactory alignment of proximal right femur through lesser trochanter -Ortho Consult, Dr. Sullivan: Will follow recommendations -Cardiology consult appreciated Dr. Gaona, will follow recommendations -Pain management: Percocet PRN -PT/OT consult appreciated: will follow recommendations 5. DM2 -uncontrolled -Insulin Lispro SC ACHS -Contine Home meds (Glucovance and Insulin Degludec 16u SC HS, will bring in home meds) -Carbohydrate consistent diet -monitor POC glucose 6. HTN w h/o CAD, CABG x5 -chronic, controlled -continue home meds: ASA 325mg PO Daily, Ramipril 5mg PO Daily, Coreg 12.5mg PO BID, Lasix 40mg PO Daily -discontinue -d/c Spironolactone 50mg PO Daily per cardiology -monitor BP 7. Left Corneal Transplant -Brimonidine 0.2% 1 drop OU HS -Latanoprost 0.005% 1 drop OU HS 8. DVT Prophylaxis -Lovenox 40mg SC QD -SCDs <Jorge Oh - Last Filed: 10/14/16 06:41> Objective - Vital Signs/Intake and Output Vital Signs (last 24 hours): Temp Pulse Resp BP Pulse Ox 98.6 F 96 H 20 128/70 99 10/14/16 00:49 10/14/16 00:49 10/14/16 00:49 10/14/16 00:49 10/14/16 00:49 - Medications Medications: Current Medications Amlodipine Besylate (Norvasc) 10 mg PO DAILY [facility] Last Admin: 10/13/16 09:09 Dose: 10 mg Aspirin (Aspirin) 325 mg PO DAILY [facility] Last Admin: 10/13/16 09:06 Dose: 325 mg Brimonidine Tartrate (Alphagan 0.2% Opht) 1 drop OU HS [facility] Last Admin: 10/13/16 21:14 Dose: 1 drop Carvedilol (Coreg) 12.5 mg PO BID [facility] Last Admin: 10/13/16 17:25 Dose: 12.5 mg Dextrose (Dextrose 50% Inj) 0 ml IV STAT PRN; Protocol PRN Reason: Hyglycemia Protocol Dextrose (Glutose 15) 0 gm PO ONCE PRN; Protocol PRN Reason: Hypoglycemia Protocol Enoxaparin Sodium (Lovenox) 40 mg SC DAILY [facility] PRN Reason: Protocol Last Admin: 10/13/16 09:10 Dose: 40 mg Ferrous Sulfate (Feosol) 325 mg PO TID [facility] Last Admin: 10/13/16 17:26 Dose: 325 mg Furosemide (Lasix) 40 mg PO DAILY [facility] Last Admin: 10/13/16 09:08 Dose: 40 mg Gabapentin (Neurontin) 300 mg PO DAILY [facility] Last Admin: 10/13/16 09:10 Dose: 300 mg Glucagon (Glucagen Diagnostic Kit) 0 mg IM STAT PRN; Protocol PRN Reason: Hypoglycemia Protocol Home Med (Insulin Degludec [Tresiba Flextouch U-100]) 16 units SQ HS [facility] Last Admin: 10/13/16 21:15 Dose: 16 units Hydromorphone HCl (Dilaudid) 1 mg IVP Q4 PRN PRN Reason: Pain, severe (8-10) Last Admin: 10/14/16 03:22 Dose: 1 mg Insulin Human Lispro (Humalog) 0 units SC [facility] PRN Reason: Protocol Last Admin: 10/13/16 21:16 Dose: 3 units Latanoprost (Xalatan Opht) 1 drop OU HS [facility] Last Admin: 10/13/16 21:12 Dose: 1 drop Ondansetron HCl (Zofran Inj) 4 mg IVP Q6 PRN PRN Reason: Nausea/Vomiting Oxycodone/Acetaminophen (Percocet 5/325 Mg Tab) 2 tab PO Q4 PRN PRN Reason: Pain, moderate (4-7) Stop: 10/14/16 15:33 Last Admin: 10/13/16 09:56 Dose: 2 tab Ramipril (Altace) 5 mg PO DAILY [facility] Last Admin: 10/12/16 08:16 Dose: 5 mg Zolpidem Tartrate (Ambien) 5 mg PO HS PRN PRN Reason: Insomnia Last Admin: 10/11/16 23:56 Dose: 5 mg - Labs Labs: 10/13/16 07:15 10/13/16 07:15 PT 9.9 Seconds (9.8-13.1) 10/10/16 00:25 INR 0.9 (0.9-1.2) 10/10/16 00:25 APTT 24.4 Seconds (25.6-37.1) L 10/11/16 06:35 Assessment and Plan (1) Prostate cancer Status: Chronic Attending/Attestation - Attestation I have personally seen and examined this patient.: Yes I have fully participated in the care of the patient.: Yes I have reviewed all pertinent clinical information, including history, physical exam and plan: Yes
--- NOTE | 2016-10-13 08:56 | CP.PCM.PN ---
Subjective - Date & Time of Evaluation Date of Evaluation: 10/12/16 Time of Evaluation: 13:00 - Subjective Subjective: pt c/o right hip pain 5-6/10 controlled with PO pain meds,NWB RLE,candie PO,voiding ,+ flatus,currently being transfused for Hgb 6.5,denies paresthesias,CP,SOB, lightheadedness Objective - Vital Signs/Intake and Output Vital Signs (last 24 hours): Temp Pulse Resp BP Pulse Ox 98.2 F 102 H 20 136/76 92 L 10/13/16 07:20 10/13/16 07:20 10/13/16 07:20 10/13/16 07:20 10/13/16 07:20 - Medications Medications: Current Medications Amlodipine Besylate (Norvasc) 10 mg PO DAILY [facility] Last Admin: 10/12/16 08:18 Dose: 10 mg Aspirin (Aspirin) 325 mg PO DAILY [facility] Last Admin: 10/12/16 08:20 Dose: 325 mg Brimonidine Tartrate (Alphagan 0.2% Opht) 1 drop OU HS [facility] Last Admin: 10/12/16 22:52 Dose: 1 drop Carvedilol (Coreg) 12.5 mg PO BID [facility] Last Admin: 10/12/16 16:30 Dose: 12.5 mg Dextrose (Dextrose 50% Inj) 0 ml IV STAT PRN; Protocol PRN Reason: Hyglycemia Protocol Dextrose (Glutose 15) 0 gm PO ONCE PRN; Protocol PRN Reason: Hypoglycemia Protocol Enoxaparin Sodium (Lovenox) 40 mg SC DAILY [facility] PRN Reason: Protocol Last Admin: 10/12/16 08:16 Dose: 40 mg Ferrous Sulfate (Feosol) 325 mg PO TID [facility] Furosemide (Lasix) 40 mg PO DAILY [facility] Last Admin: 10/12/16 08:17 Dose: 40 mg Gabapentin (Neurontin) 300 mg PO DAILY [facility] Last Admin: 10/12/16 08:17 Dose: 300 mg Glucagon (Glucagen Diagnostic Kit) 0 mg IM STAT PRN; Protocol PRN Reason: Hypoglycemia Protocol Home Med (Insulin Degludec [Tresiba Flextouch U-100]) 16 units SQ HS [facility] Last Admin: 10/12/16 22:54 Dose: 16 units Hydromorphone HCl (Dilaudid) 1 mg IVP Q4 PRN PRN Reason: Pain, severe (8-10) Last Admin: 10/13/16 07:35 Dose: 1 mg Insulin Human Lispro (Humalog) 0 units SC [facility] PRN Reason: Protocol Last Admin: 10/12/16 22:54 Dose: 2 units Latanoprost (Xalatan Opht) 1 drop OU HS [facility] Last Admin: 10/12/16 22:52 Dose: 1 drop Ondansetron HCl (Zofran Inj) 4 mg IVP Q6 PRN PRN Reason: Nausea/Vomiting Oxycodone/Acetaminophen (Percocet 5/325 Mg Tab) 2 tab PO Q4 PRN PRN Reason: Pain, moderate (4-7) Stop: 10/14/16 15:33 Last Admin: 10/12/16 20:56 Dose: 2 tab Ramipril (Altace) 5 mg PO DAILY [facility] Last Admin: 10/12/16 08:16 Dose: 5 mg Zolpidem Tartrate (Ambien) 5 mg PO HS PRN PRN Reason: Insomnia Last Admin: 10/11/16 23:56 Dose: 5 mg - Labs Labs: 10/13/16 07:15 10/13/16 07:15 PT 9.9 Seconds (9.8-13.1) 10/10/16 00:25 INR 0.9 (0.9-1.2) 10/10/16 00:25 APTT 24.4 Seconds (25.6-37.1) L 10/11/16 06:35 - Constitutional Appears: Well, Non-toxic, No Acute Distress - Head Exam Head Exam: ATRAUMATIC, NORMAL INSPECTION, NORMOCEPHALIC - Eye Exam Eye Exam: EOMI, Normal appearance, PERRL - ENT Exam ENT Exam: Mucous Membranes Moist - Respiratory Exam Respiratory Exam: Clear to Ausculation Bilateral - Cardiovascular Exam Cardiovascular Exam: REGULAR RHYTHM, +S1, +S2 - GI/Abdominal Exam GI & Abdominal Exam: Soft - Extremities Exam Additional comments: RLE incisions C/D/I,moves extremity on command, sensation intact,calves soft and NT,+ incisional tenderness - Neurological Exam Neurological Exam: Alert, Oriented x3 - Psychiatric Exam Psychiatric exam: Normal Affect, Normal Mood - Skin Skin Exam: Dry, Intact Assessment and Plan - Assessment and Plan (Free Text) Assessment: 71 yo male POD#1 Right Hip IM Nailing/Anemia secondary to bloodloss/ Hemodymically stable/NVI Plan: will f/u am CBC,NWB to RLE,PT eval 10/12,cont care,primary management per admitting team,all d/w Dr. Osorio
[2016-10-13] MEDS: Insulin Lispro (humaLOG) 100 Units/ml Inj SC SCH ×4 (09:07→21:16)
[2016-10-13] MEDS: Enoxaparin 40 mg Syringe SC SCH (09:10)
[2016-10-13] MEDS: Oxycodone/Acetaminophen 5/325 mg Tab PO PRN (09:56)
[2016-10-13] MEDS: Latanoprost 0.005% Opht SOUTION OU SCH (21:12)
[2016-10-13] MEDS: Brimonidine 0.2% 50 DROP/5 ML BOTTLE OU SCH (21:14)
[2016-10-13] MEDS: INSULIN DEGLUDEC 16 UNIT SQ SCH (21:15)
[2016-10-14] MEDS ORDERED: Oxycodone/Acetaminophen 5/325 mg Tab PO PRN (07:59)
[2016-10-14] MEDS: Oxycodone/Acetaminophen 5/325 mg Tab PO SCH ×4 (08:46→21:24)
[2016-10-14] MEDS: Enoxaparin 40 mg Syringe SC SCH (08:48)
[2016-10-14] MEDS: Insulin Lispro (humaLOG) 100 Units/ml Inj SC SCH ×4 (08:48→22:23)
--- NOTE | 2016-10-14 09:53 | CP.PCM.PN ---
Subjective - Date & Time of Evaluation Date of Evaluation: 10/14/16 Time of Evaluation: 09:30 - Subjective Subjective: Still has a fair degree of surgical pain No calf tenderness HR 80 BPM, afebrile BP 134/74 mm Hg No signs of CHF Back on Kayexalate, will check K+ level Objective - Vital Signs/Intake and Output Vital Signs (last 24 hours): Temp Pulse Resp BP Pulse Ox 98.5 F 98 H 20 150/76 93 L 10/14/16 07:22 10/14/16 08:48 10/14/16 07:22 10/14/16 08:49 10/14/16 07:22 - Medications Medications: Current Medications Amlodipine Besylate (Norvasc) 10 mg PO DAILY [facility] Last Admin: 10/14/16 08:48 Dose: 10 mg Aspirin (Aspirin) 325 mg PO DAILY [facility] Last Admin: 10/14/16 08:52 Dose: 325 mg Brimonidine Tartrate (Alphagan 0.2% Opht) 1 drop OU HS [facility] Last Admin: 10/13/16 21:14 Dose: 1 drop Carvedilol (Coreg) 12.5 mg PO BID [facility] Last Admin: 10/14/16 08:48 Dose: 12.5 mg Dextrose (Dextrose 50% Inj) 0 ml IV STAT PRN; Protocol PRN Reason: Hyglycemia Protocol Dextrose (Glutose 15) 0 gm PO ONCE PRN; Protocol PRN Reason: Hypoglycemia Protocol Enoxaparin Sodium (Lovenox) 40 mg SC DAILY [facility] PRN Reason: Protocol Last Admin: 10/14/16 08:48 Dose: 40 mg Ferrous Sulfate (Feosol) 325 mg PO TID [facility] Last Admin: 10/14/16 08:47 Dose: 325 mg Furosemide (Lasix) 40 mg PO DAILY [facility] Last Admin: 10/14/16 08:49 Dose: 40 mg Gabapentin (Neurontin) 300 mg PO DAILY [facility] Last Admin: 10/14/16 08:49 Dose: 300 mg Glucagon (Glucagen Diagnostic Kit) 0 mg IM STAT PRN; Protocol PRN Reason: Hypoglycemia Protocol Home Med (Insulin Degludec [Tresiba Flextouch U-100]) 16 units SQ HS [facility] Last Admin: 10/13/16 21:15 Dose: 16 units Insulin Human Lispro (Humalog) 0 units SC [facility] PRN Reason: Protocol Last Admin: 10/14/16 08:48 Dose: 8 units Latanoprost (Xalatan Opht) 1 drop OU HS [facility] Last Admin: 10/13/16 21:12 Dose: 1 drop Ondansetron HCl (Zofran Inj) 4 mg IVP Q6 PRN PRN Reason: Nausea/Vomiting Oxycodone/Acetaminophen (Percocet 5/325 Mg Tab) 1 tab PO Q4 [facility] Stop: 10/17/16 09:01 Last Admin: 10/14/16 08:46 Dose: 1 tab Oxycodone/Acetaminophen (Percocet 5/325 Mg Tab) 2 tab PO Q4 PRN PRN Reason: Pain, moderate (4-7) Stop: 10/17/16 09:01 Ramipril (Altace) 5 mg PO DAILY [facility] Last Admin: 10/12/16 08:16 Dose: 5 mg Senna/Docusate Sodium (Senokot S 50 Mg-8.6 Mg) 2 tab PO HS [facility] Sodium Polystyrene Sulfonate (Kayexalate Oral Susp) 15 gm PO DAILY [facility] Zolpidem Tartrate (Ambien) 5 mg PO HS PRN PRN Reason: Insomnia Last Admin: 10/11/16 23:56 Dose: 5 mg - Labs Labs: 10/13/16 07:15 10/13/16 07:15 PT 9.9 Seconds (9.8-13.1) 10/10/16 00:25 INR 0.9 (0.9-1.2) 10/10/16 00:25 APTT 24.4 Seconds (25.6-37.1) L 10/11/16 06:35
--- NOTE | 2016-10-14 10:18 | PQF GENQUE ---
Dr. Oh, Is there an associated diagnosis to go along with the following lab abnormality : WBC:15.9->12.9->12.0->13.2 10/12/16; Post-Op note: Right Femoral Intramedullary Nailing: other current diagnoses: DM2 with Hyperglycemia, Obesity, Hypertensive CKD with Heart Failure , Hyperkalemia received pre-op and q 8 hr x3 post-op :Ancef IV This form is a permanent part of the medical record Clarification of your documentation is requested to better reflect the severity of illness and intensity of treatment of your patient. Indicators present [] Specify: [] [] Specify: [] [] Specify: [] [] Specify: [] Location in the medical record that reflects the above clinical findings: [] Treatment Provided: [] PHYSICIAN'S RESPONSE Based on your medical judgment of the clinical indicators outlined above please clarify the following: [] Practitioner response [] If unable to determine, please check the box, sign and date. Present On Admission (POA) Indicator: [] Present at the time of admission [] Not present at the time of admission [] Clinically Undetermined In responding to this query, please exercise your independent professional judgment. The fact that a question is asked does not imply that any particular answer is desired or expected. Thank you for your clarification on this documentation. If you have any questions please call. * Thank you, Kellie Rios RN BSN ext. #[phone] (ext. [phone]: temporarily out of service) ERIK
--- NOTE | 2016-10-14 10:20 | CP.PCM.PN ---
Addendum entered and electronically signed by Sabina Reddy MD 10/14/16 17 :59: Called by nurse and bacteriology technician because patient refused right lower extremity duplex, spoke with patient in regards to the importance of the test to r/o DVT or occlusion and what the ultrasound procedure entailed, patient stated " I am not in pain, I just do not want this test, I will sign whatever paper you would like to refuse". Patient was then transferred back to the med surg. Original Note: <Sabina Reddy - Last Filed: 10/14/16 11:00> Subjective - Date & Time of Evaluation Date of Evaluation: 10/14/16 Time of Evaluation: 07:15 - Subjective Subjective: POD# 3 s/p Right femoral intramedullary nailing Patient seen and examined at bedside. Reports his right lower extremity pain persists, acute right calf pain this AM, he has not been able to tolerate physical therapy. Denies chest pain, SOB or dizziness. Tolerating PO diet, has not had a bowel movement for past 3 days. Objective - Vital Signs/Intake and Output Vital Signs (last 24 hours): Temp Pulse Resp BP Pulse Ox 98.5 F 98 H 20 150/76 93 L 10/14/16 07:22 10/14/16 08:48 10/14/16 07:22 10/14/16 08:49 10/14/16 07:22 - Medications Medications: Current Medications Amlodipine Besylate (Norvasc) 10 mg PO DAILY [facility] Last Admin: 10/14/16 08:48 Dose: 10 mg Aspirin (Aspirin) 325 mg PO DAILY [facility] Last Admin: 10/14/16 08:52 Dose: 325 mg Brimonidine Tartrate (Alphagan 0.2% Opht) 1 drop OU HS [facility] Last Admin: 10/13/16 21:14 Dose: 1 drop Carvedilol (Coreg) 12.5 mg PO BID [facility] Last Admin: 10/14/16 08:48 Dose: 12.5 mg Dextrose (Dextrose 50% Inj) 0 ml IV STAT PRN; Protocol PRN Reason: Hyglycemia Protocol Dextrose (Glutose 15) 0 gm PO ONCE PRN; Protocol PRN Reason: Hypoglycemia Protocol Enoxaparin Sodium (Lovenox) 40 mg SC DAILY [facility] PRN Reason: Protocol Last Admin: 10/14/16 08:48 Dose: 40 mg Ferrous Sulfate (Feosol) 325 mg PO TID [facility] Last Admin: 10/14/16 08:47 Dose: 325 mg Furosemide (Lasix) 40 mg PO DAILY [facility] Last Admin: 10/14/16 08:49 Dose: 40 mg Gabapentin (Neurontin) 300 mg PO DAILY [facility] Last Admin: 10/14/16 08:49 Dose: 300 mg Glucagon (Glucagen Diagnostic Kit) 0 mg IM STAT PRN; Protocol PRN Reason: Hypoglycemia Protocol Home Med (Insulin Degludec [Tresiba Flextouch U-100]) 16 units SQ HS [facility] Last Admin: 10/13/16 21:15 Dose: 16 units Insulin Human Lispro (Humalog) 0 units SC ACHS [facility] PRN Reason: Protocol Last Admin: 10/14/16 08:48 Dose: 8 units Latanoprost (Xalatan Opht) 1 drop OU HS [facility] Last Admin: 10/13/16 21:12 Dose: 1 drop Ondansetron HCl (Zofran Inj) 4 mg IVP Q6 PRN PRN Reason: Nausea/Vomiting Oxycodone/Acetaminophen (Percocet 5/325 Mg Tab) 1 tab PO Q4 [facility] Stop: 10/17/16 09:01 Last Admin: 10/14/16 08:46 Dose: 1 tab Oxycodone/Acetaminophen (Percocet 5/325 Mg Tab) 2 tab PO Q4 PRN PRN Reason: Pain, moderate (4-7) Stop: 10/17/16 09:01 Ramipril (Altace) 5 mg PO DAILY [facility] Last Admin: 10/12/16 08:16 Dose: 5 mg Senna/Docusate Sodium (Senokot S 50 Mg-8.6 Mg) 2 tab PO HS [facility] Sodium Polystyrene Sulfonate (Kayexalate Oral Susp) 15 gm PO DAILY [facility] Zolpidem Tartrate (Ambien) 5 mg PO HS PRN PRN Reason: Insomnia Last Admin: 10/11/16 23:56 Dose: 5 mg - Labs Labs: 10/13/16 07:15 10/13/16 07:15 PT 9.9 Seconds (9.8-13.1) 10/10/16 00:25 INR 0.9 (0.9-1.2) 10/10/16 00:25 APTT 24.4 Seconds (25.6-37.1) L 10/11/16 06:35 - Constitutional Appears: Non-toxic, No Acute Distress - Head Exam Head Exam: ATRAUMATIC, NORMOCEPHALIC - Eye Exam Eye Exam: EOMI, PERRL - ENT Exam ENT Exam: Mucous Membranes Moist - Neck Exam Neck Exam: Full ROM. absent: Lymphadenopathy - Respiratory Exam Respiratory Exam: Clear to Ausculation Bilateral, NORMAL BREATHING PATTERN - Cardiovascular Exam Cardiovascular Exam: REGULAR RHYTHM, +S1, +S2 - GI/Abdominal Exam GI & Abdominal Exam: Soft (obese). absent: Distended, Tenderness - Extremities Exam Extremities Exam: Full ROM (of bilateral upper and left. Right proximal lower extremity in hill bandage (clean/dry/intact), right calf tenderness to palpation , normal sensation bilaterally, can wiggle toes) - Back Exam Back Exam: absent: CVA tenderness (L), CVA tenderness (R) - Neurological Exam Neurological Exam: Alert, Awake, CN II-XII Intact, Oriented x3 - Skin Skin Exam: Dry, Intact, Warm Assessment and Plan - Assessment and Plan (Free Text) Assessment: 71 yr old M POD# 3 s/p Right femoral intramedullary nailing. Patient was admitted for severe right hip pain and decreased ROM secondary to traumatic fall. Patient was found to have a intertrochanteric fracture of the right hip. 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 Patient has asymptomatic anemia, not tolerating PT, complaint of right calf pain, will have RLE duplex today. 1. Leukocytosis -stable, 13.7 today, has improved since admission -likely secondary to post-traumatic and post-surgical inflammation -pt is afebrile -f/u CBC 2. Asymptomatic Anemia due to Acute blood loss -stable, H/H of 8.9/26 -s/p 2 units pRBC's -ferrous sulfate 325 TID ordered with stool softeners -will consider transfusion 3. Tachycardia -stable, improved, likely secondary to anemia vs pain -pt stable, will monitor vital signs -pain management adjusted 4. Hyperkalemia -resolved, was 4.8 yesterday -ramipril 5 mg held -will f/u serum K 5. Fracture of Right Hip secondary to traumatic fall -stable, pt is POD #3 s/p Right femoral intramedullary nailing -Hip xray s/p surgery: satisfactory alignment of proximal right femur through lesser trochanter -Ortho Consult, Dr. Sullivan: Will follow recommendations -Cardiology consult appreciated Dr. Gaona, will follow recommendations -Pain management: Percocet scheduled for mild pain and PRN for moderate pain -PT/OT consult appreciated: will follow recommendations -f/u RLE Duplex 6. DM2 -uncontrolled -Insulin Lispro SC ACHS -Continue Home meds (Glucovance (glyburide/metformin) and Insulin Degludec 16u SC HS) -Carbohydrate consistent diet -monitor POC glucose 7. HTN w h/o CAD, CABG x5 -chronic, controlled -continue home meds: ASA 325mg PO Daily, Coreg 12.5mg PO BID, Lasix 40mg PO Daily, (Ramipril 5mg PO Daily [facility]) -discontinue -d/c Spironolactone 50mg PO Daily per cardiology -monitor BP 8. Left Corneal Transplant -Brimonidine 0.2% 1 drop OU HS -Latanoprost 0.005% 1 drop OU HS 9. DVT Prophylaxis -Lovenox 40mg SC QD -SCDs on LLE only for now, pending results of RLE Duplex <Jorge Oh - Last Filed: 10/17/16 06:29> Objective - Vital Signs/Intake and Output Vital Signs (last 24 hours): Temp Pulse Resp BP Pulse Ox 98.4 F 91 H 20 148/72 95 10/15/16 08:35 10/15/16 08:35 10/15/16 08:35 10/15/16 08:35 10/15/16 08:35 - Labs Labs: 10/15/16 05:30 10/15/16 05:30 PT 9.9 Seconds (9.8-13.1) 10/10/16 00:25 INR 0.9 (0.9-1.2) 10/10/16 00:25 APTT 24.4 Seconds (25.6-37.1) L 10/11/16 06:35 Assessment and Plan (1) Prostate cancer Status: Chronic Attending/Attestation - Attestation I have personally seen and examined this patient.: Yes I have fully participated in the care of the patient.: Yes I have reviewed all pertinent clinical information, including history, physical exam and plan: Yes
[2016-10-14 10:56] LABS: MEAN CELL VOLUME 88.6 fl (80.0-94.0); MEAN CORPUSCULAR HEMOGLOBIN 30.2 pg (27.0-31.0); MEAN CORPUSCULAR HGB CONC 34.1 g/dL (33.0-37.0); WHITE BLOOD COUNT 13.7 K/uL (4.8-10.8)
[2016-10-14] MEDS: Sod Polystyrene Sulf 15 gm/60 ml Oral Susp PO SCH (11:12)
[2016-10-14 16:23] VITALS: O2SAT 95
[2016-10-14] MEDS: INSULIN DEGLUDEC 16 UNIT SQ SCH (22:22)
[2016-10-14] MEDS: Brimonidine 0.2% 50 DROP/5 ML BOTTLE OU SCH (22:23)
[2016-10-14] MEDS: Latanoprost 0.005% Opht SOUTION OU SCH (22:24)
[2016-10-14] MEDS: Docusate-Senna 50 mg-8.6 mg Tab PO SCH ×2 (22:24→22:29)
[2016-10-15] MEDS: Oxycodone/Acetaminophen 5/325 mg Tab PO SCH ×4 (01:45→12:50)
[2016-10-15 07:28] LABS: BASO # 0.1 K/uL (0.0-0.2); BASO % 0.5 % (0.0-2.0); EOS # 0.3 K/uL (0.0-0.7); EOS % 2.7 % (0.0-4.0); HEMATOCRIT 24.4 % (35.0-51.0); LYMPH # 1.2 K/uL (1.0-4.3); LYMPH % 11.2 % (20.0-40.0); MEAN CELL VOLUME 88.5 fl (80.0-94.0); MEAN CORPUSCULAR HEMOGLOBIN 30.4 pg (27.0-31.0); MEAN CORPUSCULAR HGB CONC 34.3 g/dL (33.0-37.0); MEAN PLATELET VOLUME 8.2 fl (7.2-11.7); MONO # 1.3 K/uL (0.0-0.8); MONO % 11.7 % (0.0-10.0); NEUT % 73.9 % (50.0-75.0); RED CELL DISTRIBUTION WIDTH 13.6 % (11.5-14.5); WHITE BLOOD COUNT 10.9 K/uL (4.8-10.8)
[2016-10-15 07:49] LABS: ALB/GLOB RATIO 0.9 (1.0-2.1); ALKALINE PHOSPHATASE 81 U/L (38-126); ALT/SGPT 33 U/L (21-72); AST/SGOT 39 U/L (17-59); BILIRUBIN,TOTAL 0.5 mg/dl (0.2-1.3); BLOOD UREA NITROGEN 38 mg/dl (9-20); CALCIUM 8.4 mg/dL (8.4-10.2); CARBON DIOXIDE 27 mmol/L (22-30); CHLORIDE 98 mmol/L (98-107); GFR AFRICAN-AMERICAN > 60; GLUCOSE,RANDOM 293 mg/dL (75-110); POTASSIUM 4.4 MMOL/L (3.6-5.0); SODIUM 130 mmol/l (132-148); TOTAL PROTEIN 6.5 G/DL (6.3-8.2)
[2016-10-15] MEDS: Enoxaparin 40 mg Syringe SC SCH (08:30)
[2016-10-15] MEDS: Insulin Lispro (humaLOG) 100 Units/ml Inj SC SCH ×2 (08:33→12:50)
[2016-10-15] MEDS: Sod Polystyrene Sulf 15 gm/60 ml Oral Susp PO SCH (08:34)
[2016-10-15 08:35] VITALS: BP 148/72; PULSE 91; RESP 20; TEMP 98.4
--- NOTE | 2016-10-15 08:39 | CP.PCM.PN ---
Objective - Vital Signs/Intake and Output Vital Signs (last 24 hours): Temp Pulse Resp BP Pulse Ox 98.4 F 91 H 20 148/72 95 10/15/16 08:35 10/15/16 08:35 10/15/16 08:35 10/15/16 08:35 10/15/16 08:35 - Medications Medications: Current Medications Amlodipine Besylate (Norvasc) 10 mg PO DAILY [facility] Last Admin: 10/15/16 08:32 Dose: 10 mg Aspirin (Aspirin) 325 mg PO DAILY [facility] Last Admin: 10/15/16 08:37 Dose: 325 mg Brimonidine Tartrate (Alphagan 0.2% Opht) 1 drop OU HS [facility] Last Admin: 10/14/16 22:23 Dose: 1 drop Carvedilol (Coreg) 12.5 mg PO BID [facility] Last Admin: 10/15/16 08:31 Dose: 12.5 mg Dextrose (Dextrose 50% Inj) 0 ml IV STAT PRN; Protocol PRN Reason: Hyglycemia Protocol Dextrose (Glutose 15) 0 gm PO ONCE PRN; Protocol PRN Reason: Hypoglycemia Protocol Enoxaparin Sodium (Lovenox) 40 mg SC DAILY [facility] PRN Reason: Protocol Last Admin: 10/15/16 08:30 Dose: 40 mg Ferrous Sulfate (Feosol) 325 mg PO TID [facility] Last Admin: 10/15/16 08:32 Dose: 325 mg Furosemide (Lasix) 40 mg PO DAILY [facility] Last Admin: 10/15/16 08:32 Dose: 40 mg Gabapentin (Neurontin) 300 mg PO DAILY [facility] Last Admin: 10/15/16 08:32 Dose: 300 mg Glucagon (Glucagen Diagnostic Kit) 0 mg IM STAT PRN; Protocol PRN Reason: Hypoglycemia Protocol Home Med (Insulin Degludec [Tresiba Flextouch U-100]) 16 units SQ HS [facility] Last Admin: 10/14/16 22:22 Dose: 16 units Insulin Human Lispro (Humalog) 0 units [facility] PRN Reason: Protocol Last Admin: 10/15/16 08:33 Dose: 4 units Latanoprost (Xalatan Opht) 1 drop OU HS [facility] Last Admin: 10/14/16 22:24 Dose: 1 drop Ondansetron HCl (Zofran Inj) 4 mg IVP Q6 PRN PRN Reason: Nausea/Vomiting Oxycodone/Acetaminophen (Percocet 5/325 Mg Tab) 1 tab PO Q4 [facility] Stop: 10/17/16 09:01 Last Admin: 10/15/16 08:37 Dose: 1 tab Oxycodone/Acetaminophen (Percocet 5/325 Mg Tab) 2 tab PO Q4 PRN PRN Reason: Pain, moderate (4-7) Stop: 10/17/16 09:01 Ramipril (Altace) 5 mg PO DAILY [facility] Last Admin: 10/12/16 08:16 Dose: 5 mg Senna/Docusate Sodium (Senokot S 50 Mg-8.6 Mg) 2 tab PO HS [facility] Last Admin: 10/14/16 22:29 Dose: Not Given Sodium Polystyrene Sulfonate (Kayexalate Oral Susp) 15 gm PO DAILY [facility] Last Admin: 10/15/16 08:34 Dose: 15 gm Zolpidem Tartrate (Ambien) 5 mg PO HS PRN PRN Reason: Insomnia Last Admin: 10/11/16 23:56 Dose: 5 mg - Labs Labs: 10/15/16 05:30 10/15/16 05:30 PT 9.9 Seconds (9.8-13.1) 10/10/16 00:25 INR 0.9 (0.9-1.2) 10/10/16 00:25 APTT 24.4 Seconds (25.6-37.1) L 10/11/16 06:35
--- NOTE | 2016-10-15 09:40 | CP.PCM.PN ---
Subjective - Date & Time of Evaluation Date of Evaluation: 10/15/16 Time of Evaluation: 09:20 - Subjective Subjective: Resting comfortably Surgical pain ++ HR 70 BPM reg BP 136/74 mm Hg No signs of CHF Today's K+ normal Hb 8.4 Gm (Pt on Fe orally) Scheduled to go to Rehab unit today. Objective - Vital Signs/Intake and Output Vital Signs (last 24 hours): Temp Pulse Resp BP Pulse Ox 98.4 F 91 H 20 148/72 95 10/15/16 08:35 10/15/16 08:35 10/15/16 08:35 10/15/16 08:35 10/15/16 08:35 - Medications Medications: Current Medications Amlodipine Besylate (Norvasc) 10 mg PO DAILY [facility] Last Admin: 10/15/16 08:32 Dose: 10 mg Aspirin (Aspirin) 325 mg PO DAILY [facility] Last Admin: 10/15/16 08:37 Dose: 325 mg Brimonidine Tartrate (Alphagan 0.2% Opht) 1 drop OU HS [facility] Last Admin: 10/14/16 22:23 Dose: 1 drop Carvedilol (Coreg) 12.5 mg PO BID [facility] Last Admin: 10/15/16 08:31 Dose: 12.5 mg Dextrose (Dextrose 50% Inj) 0 ml IV STAT PRN; Protocol PRN Reason: Hyglycemia Protocol Dextrose (Glutose 15) 0 gm PO ONCE PRN; Protocol PRN Reason: Hypoglycemia Protocol Enoxaparin Sodium (Lovenox) 40 mg SC DAILY [facility] PRN Reason: Protocol Last Admin: 10/15/16 08:30 Dose: 40 mg Ferrous Sulfate (Feosol) 325 mg PO TID [facility] Last Admin: 10/15/16 08:32 Dose: 325 mg Furosemide (Lasix) 40 mg PO DAILY [facility] Last Admin: 10/15/16 08:32 Dose: 40 mg Gabapentin (Neurontin) 300 mg PO DAILY [facility] Last Admin: 10/15/16 08:32 Dose: 300 mg Glucagon (Glucagen Diagnostic Kit) 0 mg IM STAT PRN; Protocol PRN Reason: Hypoglycemia Protocol Home Med (Insulin Degludec [Tresiba Flextouch U-100]) 16 units SQ HS [facility] Last Admin: 10/14/16 22:22 Dose: 16 units Insulin Human Lispro (Humalog) [address] [facility] PRN Reason: Protocol Last Admin: 10/15/16 08:33 Dose: 4 units Latanoprost (Xalatan Opht) 1 drop OU HS [facility] Last Admin: 10/14/16 22:24 Dose: 1 drop Ondansetron HCl (Zofran Inj) 4 mg IVP Q6 PRN PRN Reason: Nausea/Vomiting Oxycodone/Acetaminophen (Percocet 5/325 Mg Tab) 1 tab PO Q4 [facility] Stop: 10/17/16 09:01 Last Admin: 10/15/16 08:37 Dose: 1 tab Oxycodone/Acetaminophen (Percocet 5/325 Mg Tab) 2 tab PO Q4 PRN PRN Reason: Pain, moderate (4-7) Stop: 10/17/16 09:01 Ramipril (Altace) 5 mg PO DAILY [facility] Last Admin: 10/12/16 08:16 Dose: 5 mg Senna/Docusate Sodium (Senokot S 50 Mg-8.6 Mg) 2 tab PO HS [facility] Last Admin: 10/14/16 22:29 Dose: Not Given Sodium Polystyrene Sulfonate (Kayexalate Oral Susp) 15 gm PO DAILY [facility] Last Admin: 10/15/16 08:34 Dose: 15 gm Zolpidem Tartrate (Ambien) 5 mg PO HS PRN PRN Reason: Insomnia Last Admin: 10/11/16 23:56 Dose: 5 mg - Labs Labs: 10/15/16 05:30 10/15/16 05:30 PT 9.9 Seconds (9.8-13.1) 10/10/16 00:25 INR 0.9 (0.9-1.2) 10/10/16 00:25 APTT 24.4 Seconds (25.6-37.1) L 10/11/16 06:35
[2016-10-15] MEDS ORDERED: guaiFENesin-DM 600-30 mg ER Tab PO ONE (10:02)
--- NOTE | 2016-10-17 07:03 | CP.PCM.DIS ---
Provider - Provider Date of Admission: 10/10/16 01:26 Attending physician: Jorge Oh MD Primary care physician: Dr. Oh Consults: Dr. Osorio-Orthopedic, Dr. Gaona-cardiology Time Spent in preparation of Discharge (in minutes): 30 Diagnosis - Discharge Diagnosis (1) Hip fracture Status: Resolved Priority: Medium Hospital Course - Lab Results Lab Results: Most Recent Lab Values WBC 10.9 K/uL (4.8-10.8) H 10/15/16 05:30 RBC 2.76 Mil/uL (4.40-5.90) L 10/15/16 05:30 Hgb 8.4 g/dL (12.0-18.0) L 10/15/16 05:30 Hct 24.4 % (35.0-51.0) L 10/15/16 05:30 MCV 88.5 fl (80.0-94.0) 10/15/16 05:30 MCH 30.4 pg (27.0-31.0) 10/15/16 05:30 MCHC 34.3 g/dL (33.0-37.0) 10/15/16 05:30 RDW 13.6 % (11.5-14.5) 10/15/16 05:30 Plt Count 271 K/uL (130-400) 10/15/16 05:30 MPV 8.2 fl (7.2-11.7) 10/15/16 05:30 Neut % (Auto) 73.9 % (50.0-75.0) 10/15/16 05:30 Lymph % (Auto) 11.2 % (20.0-40.0) L 10/15/16 05:30 Gosper % (Auto) 11.7 % (0.0-10.0) H 10/15/16 05:30 Eos % (Auto) 2.7 % (0.0-4.0) 10/15/16 05:30 Baso % (Auto) 0.5 % (0.0-2.0) 10/15/16 05:30 Neut # 8.0 K/uL (1.8-7.0) H 10/15/16 05:30 Lymph # 1.2 K/uL (1.0-4.3) 10/15/16 05:30 Gosper # 1.3 K/uL (0.0-0.8) H 10/15/16 05:30 Eos # 0.3 K/uL (0.0-0.7) 10/15/16 05:30 Baso # 0.1 K/uL (0.0-0.2) 10/15/16 05:30 PT 9.9 Seconds (9.8-13.1) 10/10/16 00:25 INR 0.9 (0.9-1.2) 10/10/16 00:25 APTT 24.4 Seconds (25.6-37.1) L 10/11/16 06:35 Sodium 130 mmol/l (132-148) L 10/15/16 05:30 Potassium 4.4 MMOL/L (3.6-5.0) 10/15/16 05:30 Chloride 98 mmol/L (98-107) 10/15/16 05:30 Carbon Dioxide 27 mmol/L (22-30) 10/15/16 05:30 Anion Gap 9 (10-20) L 10/15/16 05:30 BUN 38 mg/dl (9-20) H 10/15/16 05:30 Creatinine 1.4 mg/dL (0.8-1.5) 10/15/16 05:30 Est GFR ( Amer) > 60 10/15/16 05:30 Est GFR (Non-Af Amer) 50 10/15/16 05:30 POC Glucose (mg/dL) 330 mg/dL (65-110) H 10/15/16 11:06 Random Glucose 293 mg/dL (75-110) H 10/15/16 05:30 Calcium 8.4 mg/dL (8.4-10.2) 10/15/16 05:30 Total Bilirubin 0.5 mg/dl (0.2-1.3) 10/15/16 05:30 AST 39 U/L (17-59) 10/15/16 05:30 ALT 33 U/L (21-72) 10/15/16 05:30 Alkaline Phosphatase 81 U/L (38-126) 10/15/16 05:30 Troponin I 0.0190 ng/mL (0.00-0.120) 10/10/16 00:25 Total Protein 6.5 G/DL (6.3-8.2) 10/15/16 05:30 Albumin 3.1 g/dL (3.5-5.0) L 10/15/16 05:30 Globulin 3.4 gm/dL (2.2-3.9) 10/15/16 05:30 Albumin/Globulin Ratio 0.9 (1.0-2.1) L 10/15/16 05:30 Blood Type O POSITIVE 10/10/16 01:45 Antibody Screen Negative 10/10/16 01:00 Crossmatch See Detail 10/12/16 12:30 BBK History Checked Patient has bt 10/10/16 01:45 - Hospital Course Hospital Course: 71 yr old M was admitted for severe right hip pain and decreased ROM secondary to traumatic fall. Patient was found to have a intertrochanteric fracture of the right hip. Was discharged stable and tolerating PT POD# 4 s/p Right femoral intramedullary nailing, went to [facility] for Subacute Rehab. During his admission cardiology was onboard and patient home medication of Aldactone and Ramipril were discontinued. New Rx were given start Amlodipine 10mg PO QD, Lasix 40mg PO QD, Ferrous Sulfate 325mg PO TID, Colace 100mg PO BID PRN constipation, ASA 325mg PO QD, the rest of patients home meds had been refilled this month at his pharmacy. Patient was given instructions to follow up with Dr. Osorio -orthopedic surgeon in 2 weeks , with Dr. Gaona -cardiology in 2-3 weeks and with PMD Dr. Oh in 1-2 weeks. - Date & Time of H&P Date of H&P: 10/10/16 Time of H&P: 02:32 Discharge Exam - Head Exam Head Exam: ATRAUMATIC, NORMOCEPHALIC - Eye Exam Eye Exam: EOMI, PERRL (except in left eye (had corneal transplant)) - ENT Exam ENT Exam: Mucous Membranes Moist - Neck Exam Neck exam: Full Rom - Respiratory Exam Respiratory Exam: Clear to PA & Lateral, NORMAL BREATHING PATTERN - Cardiovascular Exam Cardiovascular Exam: REGULAR RHYTHM, +S1, +S2 - GI/Abdominal Exam GI & Abdominal Exam: Normal Bowel Sounds, Soft (obese). absent: Tenderness - Extremities Exam Extremities exam: full ROM (in left leg, rihgt leg wrapped in hill bandage, patient can move right foot/wiggle toes, can slowly move right leg) Additional comments: no calf tenderness bilaterally, no pedal edema - Back Exam Back exam: absent: CVA tenderness (L), CVA tenderness (R) - Neurological Exam Neurological exam: Alert, Oriented x3 - Psychiatric Exam Psychiatric exam: Normal Affect, Normal Mood - Skin Skin Exam: Dry, Intact, Warm Discharge Plan - Follow Up Plan Condition: STABLE [facility] Instructions: ORIF of Hip Fracture (DC) Additional Instructions: -Discontinue Ramipril and Aldactone -Start Amlodipine 10mg PO QD, Lasix 40mg PO QD, Ferrous Sulfate 325mg PO TID, Colace 100mg PO BID PRN constipation, ASA 325mg PO QD, Percocet 5/325mg PO 1 tab PO Q4 x 5 days, continue rest of home meds -Follow up with Dr. Osorio -orthopedic surgeon in 2 weeks -Follow up with Dr. Gaona -cardiology in 2-3 weeks -Follow up with Dr. Oh in 1-2 weeks Referrals: Rush Gaona MD [Staff Provider] - Horacio Osorio MD [Medical Doctor] - Jorge Oh MD [Family Provider] - Clinical Quality Measures - Date & Time of Discharge Summary Date of Discharge Summary: 10/15/16 Time of Discharge Summary: 13:00
--- NOTE | 2016-11-01 08:56 | OP ---
PROCEDURE DATE: 10/11/2016 PREOPERATIVE DIAGNOSIS: Displaced right subtrochanteric femur fracture closed. POSTOPERATIVE DIAGNOSIS: Displaced right subtrochanteric femur fracture closed. PROCEDURE: Right femur open reduction and internal fixation with intramedullary nail, long TFN Synthes nail. SURGEON: Horacio Osorio MD SMOKING PIPE REPAIRER: DANIELLA Boone and Resident Luciano TYPE OF ANESTHESIA: General. ESTIMATED BLOOD LOSS: 200 mL COMPLICATIONS: None. SPECIMEN: None. DRAINS: None. DISPOSITION: Stable to recovery room. INDICATION: A 71-year-old male who sustained a slip and fall landing on his right lower extremity. Patient presented to the emergency room at [facility] with deformity of the right leg and severe pain. I was consulted for evaluation and treatment. Initial x-rays confirmed displaced subtrochanteric femur fracture which required urgent surgical fixation. After patient underwent preoperative optimization of his medical conditions, he was brought to the operating room. Risk and benefits of the procedure were explained to the patient and the family. Risk included but not limited to bleeding, infection, tendon, nerve, vessel injury, instability, blood clots, potential need for additional surgery in the future, limb loss, and . Family understood the above risks and likely to proceed. DESCRIPTION OF PROCEDURE: The patient was brought into the operating room and placed supine on the traction table. After general anesthesia was administered, the right lower extremity was placed into the traction construct. A time-out was performed. Then under fluoroscopy, a closed reduction was attempted with traction, abduction, and external rotation of the leg. Of note, the patient has severe obesity and the high BMI which added to difficulty and prolonged time of the surgery. Closed reduction showed difficulty aligning the fracture pieces. The fracture piece extended from the subtrochanteric area all the way down to the distal femoral shaft. It was comminuted and significantly displaced. At that time, a small lateral incision over the fracture site was made. A Schanz pin was used to draw into the distal fracture fragment piece to get better control of that fragment. Proximally another incision was made over the greater trochanteric area about 5 to 6 cm proximal to the greater trochanteric area on the lateral side. Incision was carried down to the bone. Exposing the tip of the greater trochanter an awl was used to open the medullary canal. A bolted guidewire was placed through the medullary canal of the proximal piece then under fluoroscopy and use of combination of open and closed reduction technique, the fracture pieces were aligned and the guidewire was placed and advanced through the distal fragment piece all the way down to the superior pole of the patella. Again fluoroscopy confirmed good alignment of the femur in both AP and lateral planes. A measuring device was used to measure the length of the femur and appropriate nail was selected. A long TFN Synthes nail was assembled on the back table and an aiming guide was placed on the nail. After this, sequential reaming of the medullary canal was initiated. We reamed to an appropriate size until cortical chatter was felt. An appropriate size of nail was then advanced over the guidewire through the medullary canal. The nail was advanced with a light mallet attached down to the distal femur. Nail was seated in an appropriate position. The guidewire was then removed. Next work was begun on placing a helical blade across the femoral neck. Trocar was used over the aiming guide. Incision was then made distal to the tip of the trocar. The trocar was advanced down to the lateral cortex of the femur. We then advanced the guidewire over the trocar across the femoral neck to the center-center position on the femoral head. Appropriate length helical blade was then measured and drilled over the femoral neck. The helical blade was then selected and advanced with light mallet blows across the femoral neck and seated in the nail. The guidewire and trocars were then removed. The helical blade was locked proximally to the nail with screwdriver. Work was then begun on locking the nail distally. Prior to doing that, anatomic rotation of the femur was achieved. Patella was centered over the knee. Fluoroscopy confirmed good anatomic cheondoism and rotation. Then two distal locking holes was selected and a perfect king island technique was used for placement of distal locking screws. Appropriate sagittals were used to open the pore of the two distal locking screws and that gauge was used for measuring the screws and appropriate size screws was selected and placed across the distal femur and nail locking it in place. The wounds were then copiously irrigated. Again, final fluoroscopy confirmed well aligned femur and good placement of nail. The Schanz pin was removed. The wound were then closed with 0 Vicryl for deep layers followed by 2-0 interrupted Vicryl followed by kareem. Sterile dressing was applied. Traction was removed. Patient tolerated the procedure well and was extubated and then returned to recovery room in excellent condition. Please note that patient was severely overweight and obese which increased the difficulty of the case and increased the time by 50%, thus a 22 Modifier was used. I was also assisted by DANIELLA Boone who is a certified physician technical staff assistant. Her help was needed throughout the entirety of the case with proper patient positioning, reduction, and providing safety for the patient. Horacio Osorio MD cc:
--- NOTE | 2016-12-27 14:34 | H.ACR ---
ADMINISTRATIVE CLOSURE OF RECORDS Date of Note: 12/27/16 Physician's Name: Anabella Mark This record is being administratively closed for the following reason: [ ] The physician on . [ ] The physician is no longer available to complete medical records physician resigned on . [ X] The person responsible is no longer [facility] employee as of 01/15/2016_. [ ] The person responsible cannot be identified. [ ] The records has missing and/or incomplete forms. The following documents were not electronically signed: [ ] History & Physical [ ] Discharge Summary [ ] Operative Report(s) [ ] Progress Notes(s) [ X] Orders(s) [ ] Other Missing/Incomplete forms: [ ] History & Physical [ ] Discharge Summary [ ] Operative Report(s) [ ] Progress Notes(s) [ X] Orders(s) x2 [ ] Other Approved for filing by Medical Executive Committee/Medical Records Committee on __12/27/16____. Thank you, [facility] TAX COMPLIANCE REPRESENTATIVE Suzanna Morelos MD, MS [employer]
== END 2016-10-15 14:55 | DRG 481 ==
LOC: H.ER 23:42 → H.ERHOLD 10-10 01:26 → H.MEDSURG1 10-10 02:47
PROVIDERS: ADMIT Family Medicine; ATTEND Family Medicine
PROC: 0QS606Z Reposition Right Upper Femur with Intramedullary Internal Fixation Device, Open Approach (ICD-10-PCS; principal; 2016-10-11 09:15)
DX: S72.141A Displaced intertrochanteric fracture of right femur, initial encounter for closed fracture (principal); I13.0 Hypertensive heart and chronic kidney disease with heart failure and stage 1 through stage 4 chronic kidney disease, or unspecified chronic kidney disease; E11.22 Type 2 diabetes mellitus with diabetic chronic kidney disease; I50.22 Chronic systolic (congestive) heart failure; E11.65 Type 2 diabetes mellitus with hyperglycemia; C61 Malignant neoplasm of prostate; D72.829 Elevated white blood cell count, unspecified; D62 Acute posthemorrhagic anemia; S72.21XA Displaced subtrochanteric fracture of right femur, initial encounter for closed fracture; W10.9XXA Fall (on) (from) unspecified stairs and steps, initial encounter; E87.5 Hyperkalemia; E78.5 Hyperlipidemia, unspecified; E78.00 Pure hypercholesterolemia, unspecified; Y93.9 Activity, unspecified; Y92.9 Unspecified place or not applicable; E66.9 Obesity, unspecified; Z68.36 Body mass index [BMI] 36.0-36.9, adult; N18.3 Chronic kidney disease, stage 3 (moderate); F17.210 Nicotine dependence, cigarettes, uncomplicated; J44.9 Chronic obstructive pulmonary disease, unspecified; Z95.1 Presence of aortocoronary bypass graft; I25.10 Atherosclerotic heart disease of native coronary artery without angina pectoris; S00.03XA Contusion of scalp, initial encounter; Z94.7 Corneal transplant status; R00.0 Tachycardia, unspecified